=== PATIENT | female | born 1950 | race Caucasian/White ===

== ENCOUNTER → 2017-02-17 | Outpatient (CLI) | payer MEDICARE, OTHER ==
--- NOTE | 2017-02-17 12:30 | XR ---
EXAMINATION TYPE: XR chest 2V DATE OF EXAM: 02/17/2017 12:27 PM COMPARISON: NONE HISTORY: Cough. TECHNIQUE: Frontal and lateral views of the chest are obtained. FINDINGS: Some eventration of anterior aspect right hemidiaphragm is seen. There is no focal air spac e opacity, pleural effusion, or pneumothorax seen. The cardiac silhouette size is within normal limi ts. The osseous structures are intact. IMPRESSION: No suspicious acute infiltrate.
--- NOTE | 2017-02-19 10:29 | MM ---
Reason for exam: screening (asymptomatic). Last mammogram was performed 1 year and 1 month ago. History: Patient is postmenopausal. Took estrogen for 10 years beginning at age 48. Physical Findings: A clinical breast exam by your physician is recommended on an annual basis and results should be correlated with mammographic findings. MG 3D Screening Mammo W/Cad Bilateral CC and MLO view(s) were taken. Prior study comparison: January 08, 2016, bilateral MG screening mammo w CAD. April 28, 2014, bilateral MG screening mammo w CAD. August 06, 2012, bilateral digital screening mammo w/CAD. There is chronic nodularity in the left breast. Chronic densities retained in the left breast relating to prior electronic device/implant. No significant changes when compared with prior studies. ASSESSMENT: Negative, BI-RAD 1 RECOMMENDATION: Routine screening mammogram of both breasts in 1 year.
== END | disposition home or self-care (01) ==
LOC: RADMAMWWP 12:13
PROVIDERS: ATTEND Family Medicine
DX: Z12.31 Encounter for screening mammogram for malignant neoplasm of breast (principal); J44.9 Chronic obstructive pulmonary disease, unspecified
CPT/HCPCS: 71020; 77063; G0202

== ENCOUNTER → 2018-04-19 | Outpatient (CLI) | payer MEDICARE, OTHER ==
--- NOTE | 2018-04-19 16:34 | BD ---
EXAMINATION TYPE: Axial Bone Density DATE OF EXAM: 04/19/2018 COMPARISON: NONE CLINICAL HISTORY: 67-year-old female asymptomatic postmenopausal screening Height: 5 FT 3IN Weight: 187 FRAX RISK QUESTIONS: History of Fracture in Adulthood: YES Secondary Osteoporosis: RISK FACTORS HISTORY OF: Active: YES Postmenopausal woman: TOTAL HYST AGE 46 Take estrogen and/or progesterone medications: TOOK DFOR 10 YEARS NO LONGER TAKES Lost more than 2 inches in height since high school: YES MEDICATIONS: Thyroid Medications:YES Which medication: SYNTHROID How Lon YEARS Additional Medications: SYNTHROID,ANTIVERT, Additional History: EXAM MEASUREMENTS: Bone mineral densitometry was performed using the [employer] System. Bone mineral density as measured about the Lumbar spine is: ----- L1-L4(G/cm2): 0.987 T Score Values are as follows: ----- L2: -2.1 ----- L3: -0.2 ----- L4: -1.1 ----- L1-L4: -1.6 Bone mineral density has: INCREASED 1.2 % since study of: 2015 Bone mineral density about the R hip (g/cm2): 0.758 Bone mineral density about the L hip (g/cm2): 0.709 T Score values are as follows: -----R Neck: -2.0 -----L Neck: -2.4 -----R Total: -2.5 -----L Total: -3.0 Bone mineral density has: DECREASED -5.2 % since study of: 2016 IMPRESSION: Osteoporosis (T Score less than -2.5). There is increased fracture risk and therapy is usually indicated based on age. Re-Screen 1-2 years. NOTE: T-SCORE=SD OF THE YOUNG ADULT MEAN.
--- NOTE | 2018-04-20 09:53 | MM ---
Reason for exam: screening (asymptomatic). Last mammogram was performed 1 year and 2 months ago. History: Patient is postmenopausal. Took estrogen for 10 years beginning at age 48. Physical Findings: A clinical breast exam by your physician is recommended on an annual basis and results should be correlated with mammographic findings. MG 3D Screening Mammo W/Cad Bilateral CC and MLO view(s) were taken. Prior study comparison: February 17, 2017, bilateral MG 3d screening mammo w/cad. January 08, 2016, bilateral MG screening mammo w CAD. The breast tissue is heterogeneously dense. This may lower the sensitivity of mammography. Benign calcifications. There is chronic nodularity in the left breast. No significant changes when compared with prior studies. ASSESSMENT: Benign, BI-RAD 2 RECOMMENDATION: Routine screening mammogram of both breasts in 1 year.
== END | disposition home or self-care (01) ==
LOC: RADMAMWWP 10:24
PROVIDERS: ATTEND Family Medicine
DX: Z12.31 Encounter for screening mammogram for malignant neoplasm of breast (principal); M81.0 Age-related osteoporosis without current pathological fracture; Z78.0 Asymptomatic menopausal state
CPT/HCPCS: 77063; 77067; 77080

== ENCOUNTER → 2018-06-01 | Outpatient (CLI) | payer MEDICARE, OTHER ==
[~2018-06-01] MED LIST: DENOSUMAB 60 MG/ML 1 ML SYRINGE SQ NR
[2018-06-01 14:41] VITALS: BP 127/79; PULSE 71; RESP 16; TEMP 98.2
== END | disposition home or self-care (01) ==
LOC: PROCWHC3 14:15
PROVIDERS: ATTEND Family Medicine
DX: M81.0 Age-related osteoporosis without current pathological fracture (principal)
CPT/HCPCS: 96372; J0897

== ENCOUNTER → 2019-06-28 | Outpatient (CLI) | payer MEDICARE ==
[2019-06-28 18:21] LABS: African American GFR (CKD) 75.1 (60.0-200.0)
== END | disposition home or self-care (01) ==
LOC: LABWHC1 12:20
PROVIDERS: ATTEND Midwife
DX: R55 Syncope and collapse (principal)
CPT/HCPCS: 36415; 82565; 84520

== ENCOUNTER → 2019-06-29 | Outpatient (CLI) | payer MEDICARE ==
--- NOTE | 2019-06-29 13:06 | MR ---
EXAMINATION TYPE: MR brain wo/w con DATE OF EXAM: 06/29/2019 COMPARISON: NONE HISTORY: syncope TECHNIQUE: Multiplanar, multisequence images of the brain and brainstem is performed without and with IV contras t, utilizing 10 mL intravenous Gadavist . FINDINGS: Diffusion weighted images demonstrate no evidence of a recent infarct or other diffusion ab normality. There is a left middle cranial fossa T2 hyperintense/FLAIR hypointense 3.6 cm lesion that follows CSF compatible with a benign arachnoid cyst. Slight mass effect on the temporal lobe. This is a benign finding. There is no extra-axial fluid collection. Mild burden nonspecific white matter armand nges seen as scattered foci of T2/FLAIR hyperintensity within the periventricular and subcortical whi te matter. The ventricular system and cisternal spaces are symmetrically prominent compatible with ag e-related volume loss. Midline structures demonstrate normal morphology. The craniocervical junction appears within normal limits. Post contrast images demonstrate no abnormal enhancement. Basilar artery appears diminutive in caliber but patent. Posterior cerebral arteries are patent. The dural venous sinuses appear patent . Scant mucosal thickening is seen within the ethmoid sinuses. The remaining visualized sinuses are c lear and the globes are intact. Left lens appears surgically absent. Mastoid air cells are well aerat ed. IMPRESSION: 1. No acute infarct, midline shift or mass effect. 2. No abnormal intracranial hemorrhage. 3. Mild burden nonspecific white matter change, likely on the basis of chronic microangiopathy. 4. Benign left middle cranial fossa arachnoid cyst. 5. Diminutive caliber of the basilar artery is incidentally noted however the posterior circulation a ppears patent.
== END | disposition home or self-care (01) ==
LOC: RADMRIMAIN 11:41
PROVIDERS: ATTEND Family Medicine
DX: G93.0 Cerebral cysts (principal); R90.82 White matter disease, unspecified
CPT/HCPCS: 70553; A9585

== ENCOUNTER → 2019-06-29 | Outpatient (CLI) | payer MEDICARE, OTHER ==
--- NOTE | 2019-06-29 15:27 | US ---
EXAMINATION TYPE: US carotid duplex BILAT DATE OF EXAM: 06/29/2019 COMPARISON: NONE CLINICAL HISTORY: ,R55 syncope,R56.9 convulsions. vertigo EXAM MEASUREMENTS: RIGHT: Peak Systolic Velocity (PSV) cm/sec ----- Right CCA: 91.0 ----- Right ICA: 99.8 ----- Right ECA: 121.9 ICA/CCA ratio: 1.1 RIGHT: End Diastole cm/sec ----- Right CCA: 23.8 ----- Right ICA: 18.3 ----- Right ECA: 19.4 LEFT: Peak Systolic Velocity (PSV) cm/sec ----- Left CCA: 86.2 ----- Left ICA: 115.7 ----- Left ECA: 69.2 ICA/CCA ratio: 1.3 LEFT: End Diastole cm/sec ----- Left CCA: 24.6 ----- Left ICA: 38.0 ----- Left ECA: 8.1 VERTEBRALS (direction of flow): Right Vertebral: Antegrade Left Vertebral: Antegrade Rhythm: Normal Mild homogeneous plaque seen with no significant stenosis IMPRESSION: Mild degree of grayscale atheromatous plaquing with no sonographically evident hemodynam ically significant stenosis within either visualized carotid arterial system. Criteria for Assigning % of Stenosis / Diameter reduction (Estimation based on the indirect measurements of the internal carotid artery velocities (ICA PSV). 1. Normal (no stenosis)=ICA PSV < 125 cm/s: ratio < 2.0: ICA EDV<40 cm/s. 2. Less than 50% stenosis=ICA PSV < 125 cm/s: ratio < 2.0: ICA EDV<40 cm/s. 3. 50 to 69% stenosis=ICA PSV of 125 to 230 cm/s: ration 2.0 ? 4.0: ICA EDV 40-100 cm/s. 4. Greater than 70% stenosis to near occlusion= ICA PSV > 230 cm/s: ratio > 4.0: ICA EDV > 100 cm/s. 5. Near occlusion= ICA PSV velocities may be low or undetectable: variable ratio and ICA EDV. 6. Total occlusion=unable to detect flow.
--- NOTE | 2019-06-29 15:28 | US ---
EXAMINATION TYPE: US venous doppler duplex LE DATE OF EXAM: 06/29/2019 2:59 PM COMPARISON: NONE CLINICAL HISTORY: R60.0 Edema,. left leg edema, no h/o dvt SIDE PERFORMED: Bilateral TECHNIQUE: The lower extremity deep venous system is examined utilizing real time linear array sonog nena with graded compression, doppler sonography and color-flow sonography. VESSELS IMAGED: External Iliac Vein (EIV) Common Femoral Vein Deep Femoral Vein Greater Saphenous Vein * Femoral Vein Popliteal Vein Small Saphenous Vein * Proximal Calf Veins (* superficial vessels) Grayscale, color doppler, spectral doppler imaging performed of the deep veins of the lower extremiti es. There is normal flow, compressibility, vascular waveforms. Right Leg: Appears negative for DVT Left Leg: Appears negative for DVT IMPRESSION: No sonographic evidence of deep venous thrombosis within either of the bilateral lower e xtremities.
== END | disposition home or self-care (01) ==
LOC: RADUSWWP 14:12
PROVIDERS: ATTEND Family Medicine
DX: I67.2 Cerebral atherosclerosis (principal); R55 Syncope and collapse
CPT/HCPCS: 93306; 93880; 93970

== ENCOUNTER → 2019-07-15 | Outpatient (CLI) | payer MEDICARE, OTHER ==
--- NOTE | 2019-07-18 13:57 | MM ---
Reason for exam: screening (asymptomatic). Last mammogram was performed 1 year and 3 months ago. History: Patient is postmenopausal. Took estrogen for 10 years beginning at age 48. Physical Findings: A clinical breast exam by your physician is recommended on an annual basis and results should be correlated with mammographic findings. MG 3D Screening Mammo W/Cad Bilateral CC and MLO view(s) were taken. Prior study comparison: April 19, 2018, bilateral MG 3d screening mammo w/cad. February 17, 2017, bilateral MG 3d screening mammo w/cad. The breast tissue is heterogeneously dense. This may lower the sensitivity of mammography. Benign appearing bilateral calcifications. No suspicious abnormality. No significant changes when compared with prior studies. ASSESSMENT: Benign, BI-RAD 2 RECOMMENDATION: Routine screening mammogram of both breasts in 1 year.
== END | disposition home or self-care (01) ==
LOC: RADMAMWWP 13:09
PROVIDERS: ATTEND Family Medicine
DX: Z12.31 Encounter for screening mammogram for malignant neoplasm of breast (principal)
CPT/HCPCS: 77063; 77067

== ENCOUNTER 2019-09-22 07:31 | Day surgery (SDC) | payer MEDICARE ==
[2019-09-19 15:48] VITALS: BMI 33.5
[~2019-09-22 07:31] MED LIST changes: -DENOSUMAB 60 MG/ML 1 ML SYRINGE SQ NR; +SODIUM CHLORIDE 0.9% 1,000 ML IV SCH
[2019-09-22 07:47] VITALS: RESP 16; TEMP 98.1
[2019-09-22 09:45] VITALS: BP 142/72; PULSE 76
--- NOTE | 2019-09-22 11:25 | P.PCN ---
Preoperative Diagnosis: Diagnosis: Recurrent dizzy spells and presyncope Twelve-lead EKG reveals sinus mechanism, normal RI, narrow QRS, normal QT interval, no delta or epsilon waves Baseline heart rate was 61 bpm, baseline blood pressure 147/77 mmHg Patient was tilted upright a 70 angle per protocol, heart rate remained stable, and blood pressure remained elevated but stable throughout the study, no significant changes in heart rate or blood pressure. Patient remained asymptomatic throughout the procedure, at the end of the procedure the patient was slight supine Impression Normal 12-lead EKG Hypertension No evidence for neurocardiogenic syncope or dysautonomia
== END 2019-09-22 09:26 | disposition home or self-care (01) ==
LOC: CATHEP 07:31
PROVIDERS: ATTEND Internal Medicine Clinical Cardiac Electrophysiology
DX: R55 Syncope and collapse (principal); I10 Essential (primary) hypertension
CPT/HCPCS: 93660

== ENCOUNTER → 2020-07-20 | Outpatient (CLI) | payer MEDICARE ==
--- NOTE | 2020-07-20 09:31 | US ---
EXAMINATION TYPE: US duplex aorta DATE OF EXAM: 07/20/2020 COMPARISON: NONE CLINICAL HISTORY: Z13.6 screening for cardiovascular disorders. EXAM MEASUREMENTS: Abdominal Aorta: Proximal: 2.3cm Mid: 1.9cm Distal: 1.6cm Bifurcation: Right: 0.8cm, Left: obscured by bowel gas No evidence of AAA. IMPRESSION: No evidence for abdominal aortic aneurysm.
== END | disposition home or self-care (01) ==
LOC: RADUSWWP 09:00
PROVIDERS: ATTEND Family Medicine
DX: Z13.6 Encounter for screening for cardiovascular disorders (principal)
CPT/HCPCS: 93979

== ENCOUNTER → 2020-07-27 | Outpatient (CLI) | payer MEDICARE ==
--- NOTE | 2020-07-31 13:22 | MM ---
Reason for exam: screening (asymptomatic). Last mammogram was performed 1 year ago. History: Patient is postmenopausal. Took estrogen for 10 years beginning at age 48. Physical Findings: A clinical breast exam by your physician is recommended on an annual basis and results should be correlated with mammographic findings. MG 3D Screening Mammo W/Cad Bilateral CC and MLO view(s) were taken. Prior study comparison: July 15, 2019, bilateral MG 3d screening mammo w/cad. April 19, 2018, bilateral MG 3d screening mammo w/cad. There are scattered fibroglandular densities. Stable fat necrosis calcifications medial left breast. No significant changes when compared with prior studies. ASSESSMENT: Benign, BI-RAD 2 RECOMMENDATION: Routine screening mammogram of both breasts in 1 year.
== END | disposition home or self-care (01) ==
LOC: RADMAMWWP 16:24
PROVIDERS: ATTEND Family Medicine
DX: Z12.31 Encounter for screening mammogram for malignant neoplasm of breast (principal)
CPT/HCPCS: 77063; 77067

== ENCOUNTER → 2020-08-13 | Outpatient (CLI) | payer MEDICARE ==
--- NOTE | 2020-08-13 18:39 | BD ---
EXAMINATION TYPE: Axial Bone Density DATE OF EXAM: 08/13/2020 COMPARISON: NONE CLINICAL HISTORY: Postmenopausal screening Height: 5 FT 3 1/2 IN Weight: 185 FRAX RISK QUESTIONS: Alcohol (3 or more units per day): NO Family History (Parent hip fracture): NO Glucocorticoids (More than 3mos): NO (Ex: prednisone, prednisolone, methylprednisolone, dexamethasone, and hydrocortisone). History of Fracture in Adulthood: YES Secondary Osteoporosis: 1. Type 1 Diabetes: NO 2. Hyperthyroidism: NO 3. Menopause before 45: NO 4. Malnutrition: NO 5. Chronic liver disease: NO Rheumatoid Arthritis: NO Current Tobacco Use: NO RISK FACTORS HISTORY OF: Surgery to Spine/Hip(right/left)/Wrist (right/left): LUMBAR SURG When: 1989 Family History of Osteoporosis: NO Active: YES Diet low in dairy products/other sources of calcium: NO Postmenopausal woman: TOTAL HYST AGE 46 Take estrogen and/or progesterone medications: TOOK HRT FRO AO YEARS NO LONGER TAKES Lost more than 2 inches in height since high school: NO Poor Health: NO MEDICATIONS: Thyroid Medications: YES Which medication: SYNTHROID How Long: OVER 30 YEARS Additional Medications: SYNTHROID Additional History: EXAM MEASUREMENTS: Bone mineral density about the R hip (g/cm2): 0.719 Bone mineral density about the L hip (g/cm2): 0.788 T Score values are as follows: -----R Neck: -1.8 -----L Neck: -2.3 -----R Total: -2.4 -----L Total: -2.9 Bone mineral density has: INCREASED 2.7 % since study of: 2018 Bone mineral density about the L Wrist (g/cm2): 0.460 T Score values are as follows: -----Dist. R+U: -3.5 -----Prox. R+U: -3.2 -----Radius total: -3.5 BASELINE IMPRESSION: Osteoporosis (T Score less than -2.5). There is increased fracture risk and therapy is usually indicated based on age. Re-Screen 1-2 years. NOTE: T-SCORE=SD OF THE YOUNG ADULT MEAN.
== END | disposition home or self-care (01) ==
LOC: RADBDWWP 09:53
PROVIDERS: ATTEND Family Medicine
DX: M81.0 Age-related osteoporosis without current pathological fracture (principal)
CPT/HCPCS: 77080

== ENCOUNTER 2021-04-10 08:47 | Day surgery (SDC) | payer MEDICARE ==
[2021-04-05 11:46] VITALS: BMI 32.8
--- NOTE | 2021-04-10 06:48 | P.GSHP ---
History of Present Illness H&P Date: 04/10/21 CHIEF COMPLAINT: Colon screen HISTORY OF PRESENT ILLNESS: The patient is a 70-year-old female who presents for colon screen. Lower endoscopy was offered for further evaluation and management. PAST MEDICAL HISTORY: Please see list. PAST SURGICAL HISTORY: Please see list. MEDICATIONS: Please see list. ALLERGIES: Please see list. SOCIAL HISTORY: No illicit drug use FAMILY HISTORY: No reports of Crohn disease or ulcerative colitis. REVIEW OF ORGAN SYSTEMS: CONSTITUTIONAL: No reports of fevers or chills. PHYSICAL EXAM: VITAL SIGNS: Stable GENERAL: Well-developed pleasant in no acute distress. HEENT: No scleral icterus. Extraocular movements grossly intact. Moist buccal mucosa. NECK: Supple without lymphadenopathy. CHEST: Unlabored respirations. Equal bilateral excursions. CARDIOVASCULAR: Regular rate and rhythm. Distal 2+ pulses. ABDOMEN: Soft, nontender, nondistended. MUSCULOSKELETAL: No clubbing, cyanosis, or edema. ASSESSMENT: 1. Colon screen. PLAN: 1. Recommend proceeding with a lower endoscopy Past Medical History Past Medical History: Hyperlipidemia, Osteoarthritis (OA), Thyroid Disorder Additional Past Medical History / Comment(s): Vertigo, fainted April 21. History of Any Multi-Drug Resistant Organisms: None Reported Past Surgical History: Back Surgery, Heart Catheterization, Hysterectomy, Joint Replacement Additional Past Surgical History / Comment(s): Left knee replacement, Loop recorder placed /later removed, right knee arthroscopy. Past Anesthesia/Blood Transfusion Reactions: Motion Sickness Smoking Status: Former smoker - Past Family History Father Family Medical History: Deep Vein Thrombosis (DVT) Additional Family Medical History / Comment(s): Heart problems. Mother Family Medical History: Deep Vein Thrombosis (DVT) Additional Family Medical History / Comment(s): Emphysema. Medications and Allergies Home Medications Medication Instructions Recorded Confirmed Type Levothyroxine Sodium [Synthroid] 112 mcg PO QAM 04/13/18 04/05/21 History Atorvastatin [Lipitor] 40 mg PO HS 04/05/21 04/05/21 History Wolf/D3/Mag11/Zinc/Genomics Scientist/José/Bor 1 each PO DAILY 04/05/21 04/05/21 History [Caltrate 600+D Plus Tablet] Cholecalciferol [Vitamin D3 (25 50 mcg PO DAILY 04/05/21 04/05/21 History Mcg = 1000 Iu)] Multivit/Folic Acid/Vit K1 1 each PO DAILY 04/05/21 04/05/21 History [One-A-Day Women's 50 Plus Tab] Allergies Allergy/AdvReac Type Severity Reaction Status Date / Time meperidine HCl [From Demerol] Allergy Rash/Hives Verified 04/05/21 11:40 codeine AdvReac Nausea & Verified 04/05/21 11:40 Vomiting
[~2021-04-10 08:47] MED LIST changes: +LACTATED RINGERS 1,000 ML IV SCH; +LIDOCAINE 1% (10MG/ML) FOR IV START INTRADERMA PRN; -SODIUM CHLORIDE 0.9% 1,000 ML IV SCH
[2021-04-10 09:29] VITALS: RESP 16; TEMP 97.6
[2021-04-10] MEDS ORDERED: PROPOFOL 10 MG/ML 20 ML VIAL IV ONE (09:41)
--- NOTE | 2021-04-10 10:11 | P.PCN ---
Date of Procedure: 04/10/21 Description of Procedure: PREOPERATIVE DIAGNOSIS: Personal history colon polyps Colonoscopy screening. POSTOPERATIVE DIAGNOSIS: Severe sigmoid diverticulosis with stricture OPERATION: Colonoscopy to the mid transverse colon SURGEON: Tiffany Travis MD. ANESTHESIA: MAC. INDICATIONS: The patient is a 70-year-old female who presents for colonoscopy screening. Last colonoscopy 5 years ago. Benefits and risks were described and informed consent was obtained. DESCRIPTION OF PROCEDURE: The patient had undergone MiraLAX Gatorade prep. The patient had been brought into the operating room and laid in the left lateral decubitus position. After adequate intravenous sedation, the rectum was examined with 2% lidocaine jelly. No external hemorrhoids were encountered. The rectal tone was within normal limits. No lesions were palpated in the rectal vault. The sigmoid colon was narrow, tortuous and redundant. An Olympus colonoscope was advanced until transverse colon and prohibitive from advancing further due to stricture. The prep was excellent. Severe sigmoid diverticulosis was encountered. No colonic polyps were found of the sigmoid and descending colon. No evidence of focal colitis was found. Retroflexion of the scope demonstrated grade 1 internal hemorrhoids without active bleeding or inflammation. The colon was desufflated. The patient had tolerated the procedure well. Withdrawal time was over 6 minutes. FINDINGS: Aronchick preparation quality scale 1 (1-5) Internal hemorrhoids, grade 1 No external prolapsed hemorrhoids. No arteriovenous malformations. Sigmoid colon narrow, tortuous, redundant with focal stricture preventing advancing the scope beyond transverse colon No focal colitis. RECOMMENDATIONS: 1. Recommend colon resection due to stricture and severe diverticulosis Plan - Discharge Summary Discharge Rx Participant: No New Discharge Prescriptions: Continue Levothyroxine Sodium [Synthroid] 112 mcg PO QAM Atorvastatin [Lipitor] 40 mg PO HS Cholecalciferol [Vitamin D3 (25 Mcg = 1000 Iu)] 50 mcg PO DAILY Multivit/Folic Acid/Vit K1 [One-A-Day Women's 50 Plus Tab] 1 each PO DAILY Wolf/D3/Mag11/Zinc/Firebrick And Refractory Tile Repairer/José/Bor [Caltrate 600+D Plus Tablet] 1 each PO DAILY Discharge Medication List Levothyroxine Sodium [Synthroid] 112 mcg PO QAM 04/13/18 [History] Atorvastatin [Lipitor] 40 mg PO HS 04/05/21 [History] Wolf/D3/Mag11/Zinc/Firebrick And Refractory Tile Repairer/José/Bor [Caltrate 600+D Plus Tablet] 1 each PO DAILY 04/05/21 [History] Cholecalciferol [Vitamin D3 (25 Mcg = 1000 Iu)] 50 mcg PO DAILY 04/05/21 [History] Multivit/Folic Acid/Vit K1 [One-A-Day Women's 50 Plus Tab] 1 each PO DAILY 04/05/21 [History] Follow up Appointment(s)/Referral(s): Tiffany Travis MD [STAFF PHYSICIAN] - 04/16/21 Patient Instructions/Handouts: Diverticulosis Diet (GEN), Diverticulosis (DC) Activity/Diet/Wound Care/Special Instructions: Repeat colonoscopy in 2 years, 2022 Discharge Disposition: HOME SELF-CARE
[2021-04-10 10:31] VITALS: BP 135/73; PULSE 63
== END 2021-04-10 11:29 | disposition home or self-care (01) ==
LOC: ORWHC2ENDO 08:47
PROVIDERS: ATTEND Surgery Plastic and Reconstructive Surgery
DX: Z12.11 Encounter for screening for malignant neoplasm of colon (principal); K57.90 Diverticulosis of intestine, part unspecified, without perforation or abscess without bleeding; K64.8 Other hemorrhoids; Z86.010 Personal history of colon polyps; E78.5 Hyperlipidemia, unspecified; E07.9 Disorder of thyroid, unspecified; M19.90 Unspecified osteoarthritis, unspecified site; Z87.891 Personal history of nicotine dependence; Z79.899 Other long term (current) drug therapy; Z88.5 Allergy status to narcotic agent; Z88.8 Allergy status to other drugs, medicaments and biological substances; R42 Dizziness and giddiness
CPT/HCPCS: J2704; G0105; 45378

== ENCOUNTER → 2021-05-07 | Outpatient (CLI) | payer MEDICARE ==
--- NOTE | 2021-05-08 06:44 | CT ---
EXAMINATION TYPE: CT abdomen pelvis w con DATE OF EXAM: 05/07/2021 COMPARISON: None HISTORY: Abnormal colonoscopy. Patient having no complaints at time of scan. CT DLP: 1160.8 mGycm CONTRAST: CT scan of the abdomen and pelvis is performed with Oral Contrast and with IV Contrast, patient injec beatrice with 100ml mL of Isovue 300. FINDINGS: LUNG BASES-: No visible nodule. No infiltrate. LIVER/GB: Small gallstones are identified. No space occupying hepatic lesion. Biliary tree is of n ormal caliber. PANCREAS: No inflammation. No distinct mass. SPLEEN: No splenic enlargement. No lesion seen. ADRENALS: No nodule. No thickening. KIDNEYS/BLADDER: No hydronephrosis. No nephrolithiasis. No distinct renal mass. Urinary bladder g rossly unremarkable. BOWEL: Normal appendix. Normal bowel caliber. No inflammation. There is evidence of sigmoid diverti cular disease. No diverticulitis. No obvious mass identified at this time. Correlate with colonoscopy results. GENITAL ORGANS: No gross abnormality. LYMPH NODES: No greater than 1cm abdominal or pelvic lymph nodes are appreciated. AORTA: No significant abnormality. OSSEOUS STRUCTURES: Severe degenerative change lumbar spine. OTHER: No significant additional abnormality is seen. IMPRESSION: 1. There is evidence of sigmoid diverticular disease. No diverticulitis. No obvious mass identified a t this time. Correlate with colonoscopy results. 2. The liver is homogeneous. 3. Cholelithiasis.
== END | disposition home or self-care (01) ==
LOC: RADCTMAIN 17:25
PROVIDERS: ATTEND Surgery Plastic and Reconstructive Surgery
DX: K80.20 Calculus of gallbladder without cholecystitis without obstruction (principal); K57.32 Diverticulitis of large intestine without perforation or abscess without bleeding
CPT/HCPCS: 82565; 84520; 74177; 36415; Q9967

== ENCOUNTER → 2021-06-05 | Outpatient (CLI) | payer MEDICARE | END | disposition home or self-care (01) | LOC: LABWHC1 15:03 | PROVIDERS: ATTEND Surgery Plastic and Reconstructive Surgery | DX: I10 Essential (primary) hypertension (principal) | CPT/HCPCS: 36415; 93005 ==

== ENCOUNTER → 2021-08-20 | Outpatient (CLI) | payer MEDICARE ==
--- NOTE | 2021-08-22 14:37 | MM ---
Reason for exam: screening (asymptomatic). Last mammogram was performed 1 year and 1 month ago. History: Patient is postmenopausal. Took estrogen for 10 years beginning at age 48. Physical Findings: A clinical breast exam by your physician is recommended on an annual basis and results should be correlated with mammographic findings. MG 3D Screening Mammo W/Cad Bilateral CC and MLO view(s) were taken. Prior study comparison: July 27, 2020, bilateral MG 3d screening mammo w/cad. July 15, 2019, bilateral MG 3d screening mammo w/cad. April 19, 2018, bilateral MG 3d screening mammo w/cad. February 17, 2017, bilateral MG 3d screening mammo w/cad. January 08, 2016, bilateral MG screening mammo w CAD. The breast tissue is heterogeneously dense. This may lower the sensitivity of mammography. There is chronic nodularity bilaterally, right subareolar and left central MLO. Medial fat necrosis calcifications on the left. Stable right CC medial asymmetric density. No significant changes when compared with prior studies. ASSESSMENT: Benign, BI-RAD 2 RECOMMENDATION: Routine screening mammogram of both breasts in 1 year. Patient should continue monthly self breast exams. A negative report should not preclude additional follow up of suspicious palpable abnormalities.
== END | disposition home or self-care (01) ==
LOC: RADMAMWWP 14:28
PROVIDERS: ATTEND Family Medicine
DX: Z12.31 Encounter for screening mammogram for malignant neoplasm of breast (principal)
CPT/HCPCS: 77063; 77067

== ENCOUNTER 2021-09-27 08:54 | Day surgery (SDC) | payer MEDICARE ==
[2021-09-25 13:09] VITALS: BMI 34.1
--- NOTE | 2021-09-27 07:12 | P.GSHP ---
History of Present Illness H&P Date: 09/27/21 CHIEF COMPLAINT: Cholecystitis HISTORY OF PRESENT ILLNESS: The patient is a 71-year-old female who presents with history of epigastric including right upper quadrant abdominal pain. She underwent diagnostic studies for her gallbladder. Separately her clinical picture was consistent with cholecystitis. Now she presents for surgical intervention. PAST MEDICAL HISTORY: Please see list PAST SURGICAL HISTORY: Please see list MEDICATIONS: Please see list ALLERGIES: Please see list SOCIAL HISTORY: Please see list FAMILY HISTORY: Please see list REVIEW OF ORGAN SYSTEMS: CONSTITUTIONAL: No reports of fevers or chills. HEENT: Denies any troubles with the vision or hearing. PHYSICAL EXAM: VITAL SIGNS: Afebrile vital signs stable GENERAL: Well-developed pleasant in no acute distress. HEENT: No scleral icterus. Extraocular movements grossly intact. Moist buccal mucosa. NECK: Supple without lymphadenopathy. CHEST: Unlabored respirations. Equal bilateral excursions. CARDIOVASCULAR: Regular rate regular rhythm rhythm. Distal 2+ pulses. ABDOMEN: Soft, nondistended. Tender along the epigastrium and right upper quadrant. MUSCULOSKELETAL: No clubbing, cyanosis, or edema. NEURO: Cranial nerves II to XII within normal limits. No focal or lateralizing signs. PSYCH: Alert and oriented to person, place and time. SKIN: Well-perfused good skin turgor. ASSESSMENT: 1. Epigastric and right upper quadrant abdominal pain 2. Chronic cholecystitis 3. Symptomatic gallstones. PLAN: 1. Will need a robotic cholecystectomy possible open. Benefits and risks were described. 2. Heparin for DVT prophylaxis 5000 units. 3. Antibiotic prophylaxis. 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 Past Anesthesia/Blood Transfusion Reactions: Motion Sickness Smoking Status: Former smoker - Past Family History Father Family Medical History: Deep Vein Thrombosis (DVT) Additional Family Medical History / Comment(s): Heart problems. Mother Family Medical History: Deep Vein Thrombosis (DVT) Additional Family Medical History / Comment(s): Emphysema. Medications and Allergies Home Medications Medication Instructions Recorded Confirmed Type Levothyroxine Sodium [Synthroid] 112 mcg PO QAM 04/13/18 09/25/21 History Atorvastatin [Lipitor] 40 mg PO DAILY 04/05/21 09/25/21 History Multivit/Folic Acid/Vit K1 1 each PO DAILY 04/05/21 09/25/21 History [One-A-Day Women's 50 Plus Tab] Allergies Allergy/AdvReac Type Severity Reaction Status Date / Time meperidine HCl [From Demerol] Allergy Rash/Hives Verified 09/25/21 12:48 codeine AdvReac Nausea & Verified 09/25/21 12:48 Vomiting
[~2021-09-27 08:54] MED LIST changes: +.fentaNYL (PF) 50 MCG/ML 2 ML AMP IV PRN; +ACETAMINOPHEN TAB 500 MG TAB PO STA; +DEXAMETHASONE SOD PHOSPHATE 4 MG/ML 1 ML VIAL IV ONE; +GABAPENTIN 300 MG CAP PO STA; +HEPARIN SODIUM,PORCINE/PF 5,000 UNIT/0.5 ML SYRINGE SQ PRN; +INDOCYANINE GREEN 25 MG VIAL IV STA; -LIDOCAINE 1% (10MG/ML) FOR IV START INTRADERMA PRN; +MELOXICAM 7.5 MG TAB PO STA; +MIDAZOLAM 2 MG/2 ML VIAL IV PRN; +ONDANSETRON 4 MG/2 ML VIAL IVP ONE; +SCOPOLAMINE 1.5MG/72HR PATCH TRANSDERM SCH
[2021-09-27 09:41] LABS: Basophils % (A) 1 %; Eosinophils # (A) 0.2 k/uL (0-0.7); Eosinophils % (A) 2 %; HCT 44.9 % (34.0-46.0); HGB 15.1 gm/dL (11.4-16.0); Lymphocytes # (A) 1.6 k/uL (1.0-4.8); Lymphocytes % (A) 23 %; MCH 31.5 pg (25.0-35.0); MCHC 33.6 g/dL (31.0-37.0); MCV 93.6 fL (80.0-100.0); Mean Platelet Volume 6.6; Monocytes # (A) 0.4 k/uL (0-1.0); Monocytes % (A) 5 %; Neutrophils # (A) 4.6 k/uL (1.3-7.7); Neutrophils % (A) 68 %; Platelet Count 323 k/uL (150-450); RDW 13.5 % (11.5-15.5); WBC 6.8 k/uL (3.8-10.6)
[2021-09-27] MEDS ORDERED: MIDAZOLAM 2 MG/2 ML VIAL ONE (11:10)
[2021-09-27] MEDS ORDERED: PROPOFOL 10 MG/ML 20 ML VIAL IV ONE (11:10)
[2021-09-27] MEDS ORDERED: HYDROmorphone (PF) 1 MG/ML ONE (11:10)
[2021-09-27] MEDS ORDERED: ROCURONIUM 10 MG/ML (5 ML VIAL) IV ONE (11:10)
[2021-09-27] MEDS ORDERED: NEOSTIGMINE 1 MG/ML 10 ML VIAL ONE (11:10)
[2021-09-27] MEDS ORDERED: GLYCOPYRROLATE 0.2 MG/ML 2 ML VIAL ONE (11:10)
[2021-09-27] MEDS ORDERED: SUCCINYLCHOLINE CHLORIDE 100 MG/5 ML SYR IV ONE (11:10)
[2021-09-27] MEDS ORDERED: .fentaNYL (PF) 50 MCG/ML 2 ML AMP ONE (11:10)
[2021-09-27] MEDS ORDERED: LIDOCAINE 1% INJ 10MG/ML (20 ML MDV) ONE (11:10)
[2021-09-27] MEDS ORDERED: BUPIVACAIN-EPI 0.25%-1:200,000 30 ML VIAL SQ ONE ×2 (11:36)
[2021-09-27 12:29] VITALS: TEMP 98
--- NOTE | 2021-09-27 12:42 | P.OP ---
Date of Procedure: 09/27/21 Description of Procedure: SURGEON: TIFFANY TRAVIS MD PREOPERATIVE DIAGNOSES: 1. Chronic cholecystitis 2. Right upper quadrant abdominal pain 3. Hypothyroidism 4. Motion sickness 5. Obesity due to excess calories, BMI 35.9 6. Hyperlipidemia POSTOPERATIVE DIAGNOSES: 1. Chronic cholecystitis 2. Right upper quadrant abdominal pain 3. Hypothyroidism 4. Motion sickness 5. Obesity due to excess calories, BMI 35.9 6. Hyperlipidemia 7. Peritoneal adhesions OPERATION: 1. Robotic-assisted da Mita Xi laparoscopic cholecystectomy, multiport with FIREFLY ESTIMATED BLOOD LOSS: 5 mL. SPECIMENS REMOVED: Gallbladder. COMPLICATIONS: None. OPERATIVE FINDINGS: 1. Moderate scarring midline with peritoneal adhesions 2. Hydrops cholecystitis INDICATIONS: The patient is a 71-year-old female who presents with symptomatic gallstones. Robotic assisted laparoscopic approach was described. Benefits and risks of the procedure including but not limited to bleeding, infection, injury to the biliary tree was described. Informed consent was obtained. DESCRIPTION OF PROCEDURE: Patient was brought to the operating room, placed in supine position. After general induction, the abdomen had been prepped and draped in standard sterile fashion. The robotic da Mita XI system was primed. After a timeout protocol was performed, the patient had been prepped and draped in standard sterile fashion. The patient was injected with indocyanine green. A 5 mm 0 degrees laparoscopic trocar entry was performed along the left upper quadrant. The abdomen insufflated to 15 mmHg pressure which was tolerated well. Diagnostic laparoscopy demonstrated no injury to bowel viscera or mesentery. The liver surface was unremarkable. Next, two 8 mm robotic ports were placed along the right upper abdomen. The camera 8-mm port was maintained along the epigastrium. Another 8 mm port was placed along the left upper abdominal wall after exchanging the 5 mm port. Please note that the ports were placed at least 10 to 15 cm away from the target anatomy of the gallbladder. The robot was docked along the left lateral abdomen. The patient was repositioned in reverse Trendelenburg position. Using a grasper for arm 3, a grasper for arm 4, including hook cautery for arm 1, the robotic system was docked and primed as described. Instruments were interchanged by the neurology physician assistant including hook cautery, Bovie cautery and clip appliers. I had sat at the console. Peritoneal adhesions along the midline was identified and undisturbed. Next attention was brought to the infundibulum and cystic structures. The infundibulum and cystic duct were dissected free from surrounding tissues. The cystic duct was isolated. FIREFLY was used to identify the cystic artery and cystic structures. A critical view of safety was obtained. Large PLASTIC clips were used throughout the entire case. Using a clip director perioperative, 2 clips were placed at the junction of the infundibulum and cystic duct. The cystic duct was divided between clips. Next, the cystic artery was similarly clipped and cauterized. Electro-Bovie cautery was used to remove the gallbladder from the hepatic fossa. Hemostasis was checked and found to be adequate. The robot was undocked. I re-scrubbed into the case. Using a 10 mm Endo Catch bag via the left upper quadrant incision, the specimen was removed from the abdominal cavity. All pneumoperitoneum instruments were evacuated from the abdominal cavity. The incisions were reapproximated using 4-0 Monocryl in an interrupted subcuticular fashion. Fascial defects were less than 8 mm in size. Please note along the trocar sites, local anesthetic was placed as a field block prior to insertion of all instruments. Liquid glue was applied to the skin. At the end of the procedure needle, sponge, and instrument count had been verified correct by the auto emissions technician. The patient was transferred to postanesthesia care unit in stable condition. Intraoperative films were shared with the patient's family. Plan - Discharge Summary Discharge Rx Participant: Yes New Discharge Prescriptions: New Simethicone [Gas-X] 125 mg PO AC-TID PRN #20 capsule PRN Reason: Pain Ibuprofen [Motrin] 600 mg PO Q8HR PRN #30 tab PRN Reason: Pain Acetaminophen Tab [Tylenol Tab] 1,000 mg PO Q6HR PRN #30 tablet PRN Reason: Pain Continue Levothyroxine Sodium [Synthroid] 112 mcg PO QAM Atorvastatin [Lipitor] 40 mg PO DAILY Multivit/Folic Acid/Vit K1 [One-A-Day Women's 50 Plus Tab] 1 each PO DAILY Discharge Medication List Levothyroxine Sodium [Synthroid] 112 mcg PO QAM 04/13/18 [History] Atorvastatin [Lipitor] 40 mg PO DAILY 04/05/21 [History] Multivit/Folic Acid/Vit K1 [One-A-Day Women's 50 Plus Tab] 1 each PO DAILY 04/05/21 [History] Acetaminophen Tab [Tylenol Tab] 1,000 mg PO Q6HR PRN #30 tablet 09/27/21 [Rx] Ibuprofen [Motrin] 600 mg PO Q8HR PRN #30 tab 09/27/21 [Rx] Simethicone [Gas-X] 125 mg PO AC-TID PRN #20 capsule 09/27/21 [Rx] Follow up Appointment(s)/Referral(s): Tiffany Travis MD [STAFF PHYSICIAN] - 10/01/21 (Telehealth possible) Patient Instructions/Handouts: *[facility] - Managing Your Pain After Surgery Without Opioids, Low Fat Diet (DC), Laparoscopic Cholecystectomy (DC) Activity/Diet/Wound Care/Special Instructions: Recommend low-fat diet for the next 2 days. No lifting over 10 pounds in 2 weeks until Oct 01. May shower. No bath tub soaks for two weeks until Oct 01 Diet as tolerated. Use Tylenol, simethicone and ibuprofen or Aleve scheduled for the next 24-48 hours for best pain relief. Use ice along incisions for today to prevent swelling. Discharge Disposition: HOME SELF-CARE
[2021-09-27 13:32] VITALS: RESP 18
[2021-09-27 13:56] VITALS: PULSE 51
[2021-09-27 14:20] VITALS: BP 119/70
[2021-09-27] MEDS ORDERED: ONDANSETRON 4 MG/2 ML VIAL ONE (14:57)
[2021-09-27] MEDS ORDERED: ONDANSETRON 4 MG/2 ML VIAL IVP ONE (15:00)
== END 2021-09-27 15:37 | disposition home or self-care (01) ==
LOC: OR 08:54
PROVIDERS: ATTEND Surgery Plastic and Reconstructive Surgery
DX: K80.10 Calculus of gallbladder with chronic cholecystitis without obstruction (principal); K66.0 Peritoneal adhesions (postprocedural) (postinfection); E78.5 Hyperlipidemia, unspecified; M19.90 Unspecified osteoarthritis, unspecified site; E03.9 Hypothyroidism, unspecified; R42 Dizziness and giddiness; Z90.710 Acquired absence of both cervix and uterus; Z96.652 Presence of left artificial knee joint; Z98.890 Other specified postprocedural states; Z87.891 Personal history of nicotine dependence; Z82.49 Family history of ischemic heart disease and other diseases of the circulatory system; Z79.890 Hormone replacement therapy; Z79.899 Other long term (current) drug therapy; Z88.5 Allergy status to narcotic agent; E66.09 Other obesity due to excess calories; Z68.35 Body mass index [BMI] 35.0-35.9, adult
CPT/HCPCS: 88304; 85025; 47563; J2250; J1100; J2710; J0690; J2405; J2001; J3010; J1170; J0330; J2704; J1644

== ENCOUNTER → 2022-10-28 | Outpatient (CLI) | payer MEDICARE ==
--- NOTE | 2022-10-28 16:14 | BD ---
EXAMINATION TYPE: Axial Bone Density DATE OF EXAM: 10/28/2022 COMPARISON: 04/19/2018/ 08/13/2020 CLINICAL HISTORY: 72 years old Female. ICD-10 CODE: Z78.0 asymptomatic menopausal state Height: 62.5 Weight: 212 FRAX RISK QUESTIONS: Family History (Parent hip fracture): NO History of Fracture in Adulthood: NO Secondary Osteoporosis: NO Rheumatoid Arthritis: NO RISK FACTORS HISTORY OF: Surgery to Spine: YES When: 1989 NO HARDWARE Family History of Osteoporosis: NO Active: YES Diet low in dairy products/other sources of calcium: YES Postmenopausal woman: YES Lost more than 2 inches in height since high school: YES Frequent falls: NO Poor Health: NO Hyperparathyroidism: NO Adrenal Insufficiency: NO MEDICATIONS: Thyroid Medications: YES Which medication: Synthroid How Lon+ YEARS Additional Medications: YES CHOLESTEROL MEDS , ONE A DAY VIT EXAM MEASUREMENTS: Bone mineral densitometry was performed using the Friendfer System. Bone mineral density as measured about the Lumbar spine is: ----- L1-L4(G/cm2): 1.041 T Score Values are as follows: ----- L1: -2.5 ----- L2: -1.1 ----- L3: -0.7 ----- L4: -0.32 ----- L1-L4: -1.2 Bone mineral density has: Increased 5.5% since study of: 04/19/2018 Bone mineral density about the R hip (g/cm2): 0.744 Bone mineral density about the L hip (g/cm2): 0.689 T Score values are as follows: -----R Neck: -2.5 -----L Neck: -2.6 -----R Total: -2.1 -----L Total: -2.5 Bone mineral density has: Increased 5.9% since study of: 08/13/2020 FRAX%s: The graph provided illustrates a 15.7% chance for a major osteoporotic fx and a 4.8% chance f or the hips probability for fx in 10 years time. IMPRESSION: Osteoporosis (T Score less than -2.5). There is increased fracture risk and therapy is usually indicated based on age. Re-Screen 1-2 years. NOTE: T-SCORE=SD OF THE YOUNG ADULT MEAN.
--- NOTE | 2022-10-29 08:50 | MM ---
Reason for Exam: Screening (asymptomatic). Last mammogram was performed 1 year(s) and 2 month(s) ago. Patient History: Menarche at age 9. First Full-Term at age 18. Left ovary removed at age 46. Right ovary removed at age 46. Hysterectomy at age 46. Postmenopausal. Patient has history of breast feeding. Estrogen for 10 years from age 48 until age 58. Risk Values: Trinity 5 year model risk: 1.7%. NCI Lifetime model risk: 4.0%. Prior Study Comparison: 07/15/2019 Bilateral Screening Mammogram, [facility]. 07/27/2020 Bilateral Screening Mammogram, [facility]. 08/20/2021 Bilateral Screening Mammogram, [facility]. Tissue Density: There are scattered fibroglandular densities. Findings: Analyzed By CAD. Pattern appears symmetrical and stable. Calcification or foreign bodies within the left breast, stable from comparison. Chronic nodule is within the medial left breast. No suspicious groups of microcalcifications, spiculated or lobular masses, architectural distortion or other secondary signs of malignancy are mammographically apparent. Overall Assessment: Benign, BI-RAD 2 Management: Screening Mammogram of both breasts in 1 year. A negative mammogram report should not preclude additional follow up of suspicious palpable abnormalities. Patient should continue monthly self breast exam. A clinical breast exam by your physician is recommended on an annual basis and results should be correlated with mammographic findings. Electronically signed and approved by: Bertin Mixon D.O. Radiologis
== END | disposition home or self-care (01) ==
LOC: RADMAMWWP 13:54
PROVIDERS: ATTEND Family Medicine
DX: Z12.31 Encounter for screening mammogram for malignant neoplasm of breast (principal); M81.0 Age-related osteoporosis without current pathological fracture; M85.89 Other specified disorders of bone density and structure, multiple sites; Z78.0 Asymptomatic menopausal state
CPT/HCPCS: 77063; 77067; 77080

== ENCOUNTER → 2023-01-07 | Outpatient (CLI) | payer MEDICARE ==
--- NOTE | 2023-01-07 13:23 | MR ---
EXAMINATION TYPE: MR lumbar spine wo con DATE OF EXAM: 01/07/2023 COMPARISON: HISTORY: LOW BACK PAIN INTO RT SIDE TECHNIQUE: Multiplanar, multisequence images of the lumbar spine were acquired without IV contrast. L1-L2: Normal disc appearance without desiccation. No herniation, protrusion or disc bulging. No ca nal stenosis is present. Foramina are patent bilaterally. L2-L3: Moderate decreased signal and loss of height compatible degenerative disc disease. Posterior d isc bulging with effacement of the ventral thecal sac. No evidence for central stenosis or lateral re cess stenosis. Facet joint arthropathy without neural foraminal encroachment. L3-L4: Moderate decreased signal and loss of height compatible degenerative disc disease. Posterior d isc bulging with effacement of the ventral thecal sac. Hypertrophy of the ligamentum flavum and facet joint arthropathy contribute to borderline to mild central stenosis. Foramina are patent. L4-L5: Moderate to severe disc desiccation. Right paracentral disc bulge with right lateral recess st enosis and mild right lateral foraminal encroachment. No evidence for central stenosis at this time. Ventral spondylosis. L5-S1: Severe disc desiccation with posterior disc bulge. Mild effacement ventral thecal sac. Posteri or disc bulge. No evidence for herniation or central stenosis. Mild neural foraminal encroachment. Lumbar segments are intact. No paraspinal masses are identified. Conus medullaris has a normal appe arance. IMPRESSION: 1. Multilevel degenerative disc disease. 2. Borderline to mild central stenosis at L3-4. Brain degrees of neural foraminal encroachment.
== END | disposition home or self-care (01) ==
LOC: RADMRIMAIN 11:30
PROVIDERS: ATTEND Physical Medicine & Rehabilitation
DX: M51.36 Other intervertebral disc degeneration, lumbar region (principal); M48.061 Spinal stenosis, lumbar region without neurogenic claudication; M47.816 Spondylosis without myelopathy or radiculopathy, lumbar region; M48.062 Spinal stenosis, lumbar region with neurogenic claudication; M41.26 Other idiopathic scoliosis, lumbar region
CPT/HCPCS: 72148

== ENCOUNTER → 2023-03-19 | Outpatient (CLI) | payer MEDICARE ==
--- NOTE | 2023-03-19 14:51 | US ---
EXAMINATION TYPE: US venous doppler duplex LE BI DATE OF EXAM: 03/19/2023 2:07 PM COMPARISON: 06/29/2019 CLINICAL INDICATION: Female, 72 years old with history of R60.0 EDEMA; swelling in legs, no h/o dvt SIDE PERFORMED: Bilateral TECHNIQUE: The lower extremity deep venous system is examined utilizing real time linear array sonog nena with graded compression, doppler sonography and color-flow sonography. VESSELS IMAGED: Common Femoral Vein Deep Femoral Vein Greater Saphenous Vein * Femoral Vein Popliteal Vein Small Saphenous Vein * Proximal Calf Veins (* superficial vessels) Right Leg: Negative for DVT Left Leg: Negative for DVT IMPRESSION: Grayscale, color doppler, spectral doppler imaging performed of the deep veins of the lo wer extremities. There is normal flow, compressibility, vascular waveforms.
== END | disposition home or self-care (01) ==
LOC: RADUSWWP 12:59
PROVIDERS: ATTEND Family Medicine
DX: R60.0 Localized edema (principal)
CPT/HCPCS: 93970

== ENCOUNTER → 2023-03-20 | Outpatient (CLI) | payer MEDICARE ==
--- NOTE | 2023-03-24 07:47 | MR ---
EXAMINATION TYPE: MR hip RT wo con DATE OF EXAM: 03/20/2023 COMPARISON: CT abdomen and pelvis May 07, 2021. HISTORY: Right hip pain For 3.5 months. Primary osteoarthritis. Standard multiplanar, multisequence MRI departmental protocol Multiplanar, multisequence images of the pelvis focusing on right hip were acquired without contrast. FINDINGS: There is heterogeneous diminished T1 and increased T2 signal throughout the right femoral h ead and neck with more prominent diminished signal involving the articular surface at the femoral hea d. There are areas of increased T2 signal in the acetabulum. There is moderate to severe axial joint space loss in both hips. There are small hip joint effusions bilaterally. There is beginning loss of normal spherical shape to the right femoral head. No bony fragmentation identified. Increased fluid s ignal at level of right greater trochanter is consistent with an insertional tendinosis. Symmetric sm all bilateral fat-containing inguinal hernias. No groin adenopathy bilaterally. Muscle bulk is symmet julien and maintained. There is edema through the obturator muscles medially on the right. There are diverticula in the sigmoid colon. No free fluid in the pelvis. Uterus is surgically absent. No suspicious bowel dilatation. IMPRESSION: Moderate to advanced degenerative changes in both hips more prominent on the right with a symmetric right-sided osseous and muscular edema. Avascular necrosis is likely present. Further detai ls as discussed above.
== END | disposition home or self-care (01) ==
LOC: RADMRIMAIN 18:30
PROVIDERS: ATTEND Physical Medicine & Rehabilitation
DX: M16.0 Bilateral primary osteoarthritis of hip (principal); M48.062 Spinal stenosis, lumbar region with neurogenic claudication; M51.16 Intervertebral disc disorders with radiculopathy, lumbar region; M51.17 Intervertebral disc disorders with radiculopathy, lumbosacral region; M47.26 Other spondylosis with radiculopathy, lumbar region; M47.27 Other spondylosis with radiculopathy, lumbosacral region

== ENCOUNTER → 2023-06-02 | Outpatient (CLI) | payer MEDICARE ==
[2023-06-02 15:08] LABS: Partial Thromboplastin Time 22.6 sec (22.0-30.0); Prothrombin Time 10.5 sec (9.0-12.0)
[2023-06-02 19:51] LABS: ALT 34 U/L (8-44); AST 33 U/L (13-35); Albumin 4.6 d/dL (3.8-4.9); Albumin/Globulin Ratio 2.19 Ratio (1.60-3.17); Alkaline Phosphatase 131 U/L (41-126); Blood Urea Nitrogen 16.1 mg/dL (9.0-27.0); Calcium 10.2 mg/dL (8.7-10.3); Carbon Dioxide 26.7 mmol/L (21.6-31.8); Chloride 105 mmol/L (96-109); Globulin 2.1 d/dL (1.6-3.3); Glucose 132 mg/dL (70-110); Potassium 4.4 mmol/L (3.5-5.5); Sodium 144 mmol/L (135-145); Total Bilirubin 0.8 mg/dL (0.3-1.2); Total Protein 6.7 d/dL (6.2-8.2)
[2023-06-02 20:13] LABS: Appearance,Urine Cloudy (Clear); Bilirubin,Urine Small (Negative); Blood,Urine Negative (Negative); Color,Urine Dark Yellow (Yellow); Ketones,Urine Trace (Negative); Nitrite,Urine Negative (Negative); Specific Gravity,Urine 1.024 (1.001-1.030)
[2023-06-02 21:29] LABS: HCT 43.7 % (37.2-46.3); HGB 14.5 d/dL (12.0-15.0); MCH 30.5 pg (27.0-32.0); MCHC 33.2 d/dL (32.0-37.0); Mean Platelet Volume 9.6 FL (9.5-12.2); NRBC Per 100 WBC 0 X 10*3/uL (0.00-0.01); Platelet Count 317 X 10*3/uL (140-440); RBC 4.75 X 10*6/uL (4.10-5.20); RDW 12.2 % (11.5-14.5); WBC 4.71 X 10*3/uL (4.50-10.00)
[2023-06-02 23:02] LABS: Bacteria,Urine Trace; Calcium Oxalate Crystals,Urine Present (None Seen)
== END | disposition home or self-care (01) ==
LOC: LABPAT 13:44
PROVIDERS: ATTEND Orthopaedic Surgery
DX: Z01.818 Encounter for other preprocedural examination (principal); M16.11 Unilateral primary osteoarthritis, right hip; R94.31 Abnormal electrocardiogram [ECG] [EKG]
CPT/HCPCS: 80053; 81001; 85027; 85610; 85730; 87070; 93005

== ENCOUNTER 2023-06-09 05:32 | Observation (INO) | payer MEDICARE ==
[2023-06-01 14:32] VITALS: BMI 34.2
[~2023-06-09 05:32] MED LIST changes: -.fentaNYL (PF) 50 MCG/ML 2 ML AMP IV PRN; +ACETAMINOPHEN TAB 500 MG TAB PO PRN; -ACETAMINOPHEN TAB 500 MG TAB PO STA; -DEXAMETHASONE SOD PHOSPHATE 4 MG/ML 1 ML VIAL IV ONE; +GABAPENTIN 300 MG CAP PO PRN; -GABAPENTIN 300 MG CAP PO STA; -HEPARIN SODIUM,PORCINE/PF 5,000 UNIT/0.5 ML SYRINGE SQ PRN; -INDOCYANINE GREEN 25 MG VIAL IV STA; -LACTATED RINGERS 1,000 ML IV SCH; +MELOXICAM 7.5 MG TAB PO PRN; -MELOXICAM 7.5 MG TAB PO STA; -MIDAZOLAM 2 MG/2 ML VIAL IV PRN; -ONDANSETRON 4 MG/2 ML VIAL IVP ONE; -SCOPOLAMINE 1.5MG/72HR PATCH TRANSDERM SCH; +TRANEXAMIC 1,000 MG/100ML-NACL 1,000 MG in SALINE 1 100ML.BAG IVPB PRN
[2023-06-09] MEDS ORDERED: DEXAMETHASONE SOD PHOSPHATE 4 MG/ML 1 ML VIAL IV ONE (06:06)
[2023-06-09] MEDS ORDERED: ONDANSETRON 4 MG/2 ML VIAL IVP ONE (06:06)
[2023-06-09] MEDS ORDERED: fentaNYL (PF) 50 MCG/ML 2 ML AMP IV PRN (06:06)
[2023-06-09] MEDS: LACTATED RINGERS 1,000 ML IV SCH (06:24)
[2023-06-09] MEDS ORDERED: MIDAZOLAM 2 MG/2 ML VIAL IVP ONE (06:49)
[2023-06-09] MEDS ORDERED: fentaNYL (PF) 50 MCG/ML 2 ML AMP ONE (06:56)
[2023-06-09] MEDS ORDERED: PROPOFOL 10 MG/ML 20 ML VIAL IV ONE (06:56)
[2023-06-09] MEDS ORDERED: MIDAZOLAM 2 MG/2 ML VIAL ONE (06:56)
[2023-06-09] MEDS ORDERED: PHENYLEPHRINE-0.9% NACL SYG 1,000 MCG/10 ML SYRINGE ONE (06:56)
[2023-06-09] MEDS ORDERED: ceFAZolin 1,000 MG in SODIUM CHLORIDE 0.9% 1,000 ML IRRIGATION ONE (07:00)
[2023-06-09] MEDS ORDERED: ROPIVACAINE 5 MG/ML 30 ML VIAL MISCELLANE ONE ×2 (07:24→08:03)
--- NOTE | 2023-06-09 08:09 | P.OP ---
Date of Procedure: 06/09/23 Preoperative Diagnosis: Severe osteoarthritis right hip Postoperative Diagnosis: Severe osteoarthritis right hip Procedure(s) Performed: Right total hip arthroplasty with a direct anterior approach Implants: [employer] Polarstem standard size 7 with a collar [employer] R3, 3 hole hemispherical acetabular shell, 50 mm [employer] Reflection 6.5 mm cancellus screw, 20 mm, 25 mm [employer] R3, XLPE 20 acetabular liner [employer] Oxinium femoral head 36 mm, +0 All components were press-fit. The articulation is Oxinium on polyethylene. Anesthesia: spinal Surgeon: Devin Alex Equipment Installer #1: Kathe Zaman Estimated Blood Loss (ml): 200 Pathology: none sent Condition: stable Disposition: PACU Indications for Procedure: After failure of conservative treatment we discussed the surgical and n onsurgical treatment options at length. Patient wishes to proceed with a total hip arthroplasty with a direct anterior approach. Complications specific to this procedure were discussed at length, including but not limited to infection, leg length discrepancy, dislocation, nerve injury, and fracture. Covid-19 was also discussed at length with the patient, and they are aware of the current policies and procedures. The patient was given the option of delaying surgery, but they elect to proceed knowing these risks. Patient is aware of all these complications and informed consent was obtained Operative Findings: The operative findings are consistent with severe osteoarthritis of the right hip Description of Procedure: The patient was seen and evaluated in the preoperative area and the consent was reviewed. The operative site was marked with a skin marker. The patient verified the procedure and operative site. A KERRY block was placed by anesthesia in the preoperative area. The patient was then brought to the operating room and given preoperative antibiotics intravenously. 1 g of Tranexamic acid was also given intravenously. A spinal anesthetic was administered by the anesthesia department. The patient was then placed on the Clifton table with the bony prominences well-padded. The hip area was then prepped with a ChloraPrep solution and draped in the usual sterile fashion. A universal timeout was then performed, which confirmed the patient's name, surgical site, ALLERGIES, and procedure being performed on the consent. Next the incision site was located at 1 cm distal and 4 cm lateral to the anterior superior iliac spine. The skin and subcutaneous tissues were sharply incised. Incision was carefully dissected down to the fascia overlying the tensor fascia savannah muscle. This fascia was then incised in line with the muscle fibers. Care was taken to stay laterally in order to avoid injuring the lateral femoral cutaneous nerve. Next, using blunt finger dissection, the tensor fascia savannah muscle was dissected off its investing fascia. The muscle was then carefully retracted laterally with a cobra retractor over the lateral neck of the femur. Next, the circumflex vessels were identified and cauterized using the Aquamantis device. The anterior hip capsule was then exposed. The capsule was then opened and an inverted T fashion. The retractors were then placed intracapsularly. The retractors were maintained intracapsular throughout the procedure. The proximal femur was then visualized. Fluoroscopic x-rays were then taken in order to evaluate the preoperative leg lengths. A small amount of traction was placed on the leg. The femoral neck was then osteotomized at the appropriate level above the lesser trochanter. A small wedge of bone was then removed from the remaining femoral head. Next, using a corkscrew the femoral head was removed from the acetabulum. On gross visual inspection, the femoral head had complete loss of articular cartilage and multiple periarticular osteophytes. The femoral head was then measured. Attention was then turned to the acetabulum. The acetabulum was exposed and any remaining labrum was excised. Sequential reaming of the acetabulum was performed using fluoroscopic guidance until there was a good bed of bleeding cancellus bone. When the appropriate size was reached, a trial was then placed. The position and fit of the trial was checked with fluoroscopy. The trial was then removed. Then, using fluoroscopic guidance, the final implant was impacted at 20 of anteversion and 40 of abduction, and fully seated in the acetabulum. 2 screws were then placed in the acetabulum. Again fluoroscopy was used to check position of the screws. Next, the liner was then impacted, with a 20 elevated liner located in the anterior superior quadrant. Component locking was confirmed. Attention was then directed to the femur. With the aid of the Clifton table, the femur was externally rotated to approximately 130, extended, and adducted under the opposite leg. A side hook was then placed under the proximal femur, and the side hook elevator was used to elevate the proximal femur while releasing the capsule. Retractors were then placed. A capsular release was performed, as well as a release of the conjoined tendon, which afforded excellent visualization of the proximal femur. Next, a box osteotome was used to lateralize the proximal femur. A deckhand clam dredge was then used to locate the femoral canal. Sequential broaching was then performed with appropriate size which afforded excellent fixation in the proximal femur. A trial was then placed with appropriate head and neck, and the hip was gently reduced with the aid of the Clifton table. Fluoroscopy was then used to check position of the components, as well as to evaluate the leg lengths and offset. The leg lengths and offset were measured as closely as possible to ensure stability of the hip. The hip was then gently dislocated and the trials were then removed. Final implants were then impacted and the hip was again reduced. Final fluoroscopic x-rays confirmed that the components were in anatomic position. The leg lengths and offset were measured and were found to coincide with the trial measurements. The hip was also taken through range of motion, and found to be stable. The hip was then copiously irrigated with antibiotic solution with pulsatile lavage. The hip was then irrigated with Irrisept solution. The soft tissues were then injected with a ropivacaine solution. A second dose of 1 g of Tranexamic acid was also given intravenously. The fascia was then closed with 2-0 strata fix suture. The subcutaneous tissue was closed with 3-0 Vicryl. The subcuticular tissue was closed with 3-0 strata fix suture. The skin was then closed with Exofin skin glue. After the glue and dried, and Optifoam silver impregnated dressing was applied. The patient was then transferred to the recovery room in stable condition. The registered dental assistant rda EVITA De Jesus was required due to the complexity of surgery, and the need for skilled manager surgical for positioning, draping, exposure, retraction, and closure of the wound.
[2023-06-09] MEDS ORDERED: HYDROmorphone 0.5 MG/0.5 ML SYRINGE IVP PRN ×2 (08:34)
[2023-06-09] MEDS ORDERED: MAGNESIUM HYDROXIDE 2,400 MG/30 ML CUP PO PRN (08:34)
[2023-06-09] MEDS ORDERED: NALOXONE 0.4 MG/ML 1 ML VIAL IV PRN (08:34)
[2023-06-09] MEDS ORDERED: HYDROcodone/APAP 7.5-325MG 1 EACH TAB PO PRN (08:36)
--- NOTE | 2023-06-09 08:49 | P.ANPRN ---
Procedure Note - Anesthesia - Nerve Block Performed Right Dwight Single Time Out Performed: Yes ([id number]) Date of Procedure: 06/09/23 Procedure Start Time: 06:49 Procedure Stop Time: 06:55 Location of Patient: PreOp Indication: Acute Post-Operative Pain, Requested by Surgeon Specifically requested for management of pain by DrRamin: Devin Alex Sedation Type: Sedate with meaningful contact maintained Preparation: Sterile Prep Position: Supine Catheter: None Needle Types: [place]ajunk Needle Gauge: 21 Ultrasound used to visualize needle placement: Yes Ultrasound used to observe medication spread: Yes Injectate: 0.5% Ropivacaine (see comment for volume) (30cc) Blood Aspirated: No Pain Paresthesia on Injection Noted: No Resistance on Injection: Normal Image Stored and Saved: Yes Events: Uneventful and Well Tolerated
--- NOTE | 2023-06-09 09:18 | FL ---
Fluoroscopy History: Rt Hip-Ant Rt Hip-Ant 55sec fluoro time 3.6034 DAP
--- NOTE | 2023-06-09 11:09 | XR ---
Fluoroscopy History: Rt Hip-Ant Rt Hip-Ant
[2023-06-09] MEDS: HYDROmorphone 0.5 MG/0.5 ML SYRINGE IVP ONE ×2 (12:10→12:45)
[2023-06-09] MEDS: ONDANSETRON 4 MG/2 ML VIAL IVP PRN (13:43)
--- NOTE | 2023-06-09 14:29 | P.CONS ---
History of Present Illness - Reason for Consult Perioperative complication management - History of Present Illness 72-year-old female admitted for elective right fundoplasty patient pain is fairly well-controlled patient denied any fever chills nausea vomiting abdominal pain dysuria. REVIEW OF SYSTEMS: CONSTITUTIONAL: No fever, no malaise, no fatigue. HEENT: No recent visual problems or hearing problems. Denied any sore throat. CARDIOVASCULAR: No chest pain, orthopnea, PND, no palpitations, no syncope. PULMONARY: No shortness of breath, no cough, no hemoptysis. GASTROINTESTINAL: No diarrhea, no nausea, no vomiting, no abdominal pain. NEUROLOGICAL: No headaches, no weakness, no numbness. HEMATOLOGICAL: Denies any bleeding or petechiae. GENITOURINARY: Denies any burning micturition, frequency, or urgency. MUSCULOSKELETAL/RHEUMATOLOGICAL: Denies any joint pain, swelling, or any muscle pain. ENDOCRINE: Denies any polyuria or polydipsia. The rest of the 14-point review of systems is negative. PHYSICAL EXAMINATION: GENERAL: The patient is alert and oriented x3, not in any acute distress. Well developed, well nourished. HEENT: Pupils are round and equally reacting to light. EOMI. No scleral icterus. No conjunctival pallor. Normocephalic, atraumatic. No pharyngeal erythema. No thyromegaly. CARDIOVASCULAR: S1 and S2 present. No murmurs, rubs, or gallops. PULMONARY: Chest is clear to auscultation, no wheezing or crackles. ABDOMEN: Soft, nontender, nondistended, normoactive bowel sounds. No palpable organomegaly. MUSCULOSKELETAL: No joint swelling or deformity. EXTREMITIES: No cyanosis, clubbing, or pedal edema. NEUROLOGICAL: Gross neurological examination did not reveal any focal deficits. SKIN: No rashes. Assessment and plan -Right hip arthroplasty: Patient pain is fairly well controlled continue with present pain medications -Hyperlipidemia patient was resumed on atorvastatin -Hypothyroidism: continue with 150 g of levothyroxine DVT prophylaxis: As per primary service Past Medical History Past Medical History: Hyperlipidemia, Osteoarthritis (OA), Thyroid Disorder Additional Past Medical History / Comment(s): Vertigo, episode of fainting in the past-not cardiac related History of Any Multi-Drug Resistant Organisms: None Reported Past Surgical History: Back Surgery, Cholecystectomy, Heart Catheterization, Hysterectomy, Joint Replacement, Orthopedic Surgery Additional Past Surgical History / Comment(s): Left knee replacement, Loop recorder placed /later removed, right knee arthroscopy. Past Anesthesia/Blood Transfusion Reactions: Motion Sickness Additional Past Anesthesia/Blood Transfusion Reaction / Comm: vertigo hx Past Psychological History: No Psychological Hx Reported Smoking Status: Former smoker Past Alcohol Use History: None Reported Additional Past Alcohol Use History / Comment(s): Quit smoking approx 1970's, smoked approx 6 yrs, 1 PPD. Past Drug Use History: None Reported - Past Family History Father Family Medical History: Deep Vein Thrombosis (DVT) Additional Family Medical History / Comment(s): Heart problems. Mother Family Medical History: Deep Vein Thrombosis (DVT) Additional Family Medical History / Comment(s): Emphysema. Medications and Allergies Home Medications Medication Instructions Recorded Confirmed Type Atorvastatin [Lipitor] 40 mg PO DAILY 04/05/21 06/09/23 History Levothyroxine Sodium [Synthroid] 150 mcg PO DAILY 06/01/23 06/09/23 History traMADol HCL 50 mg PO HS 06/01/23 06/09/23 History Aspirin 325 mg PO BID #60 tab 06/09/23 Rx HYDROcodone/APAP 7.5-325MG [[place] 1 - 2 tab PO Q6H PRN #32 tab 06/09/23 Rx 7.5-325] Sennosides [Senokot] 2 tab PO DAILY PRN #60 tablet 06/09/23 Rx Allergies Allergy/AdvReac Type Severity Reaction Status Date / Time meperidine HCl [From Demerol] Allergy Rash/Hives Verified 06/09/23 06:07 codeine AdvReac Nausea & Verified 06/09/23 06:07 Vomiting Physical Exam Vitals: Vital Signs Temp Pulse Pulse Resp BP Pulse Ox 06/09/23 13:00 64 16 147/89 98 06/09/23 12:00 71 16 130/81 98 06/09/23 11:17 59 L 16 141/80 98 06/09/23 11:00 62 16 156/84 98 06/09/23 10:45 60 16 151/84 98 06/09/23 10:32 58 L 16 161/81 98 06/09/23 10:15 59 L 16 168/87 98 06/09/23 10:00 54 L 16 167/83 98 06/09/23 09:47 53 L 16 162/78 98 06/09/23 09:30 54 L 16 155/78 98 06/09/23 09:16 51 L 16 159/80 95 06/09/23 09:00 54 L 16 152/73 95 06/09/23 08:45 50 L 14 134/68 95 06/09/23 08:28 97.2 F L 61 12 118/75 95 06/09/23 06:51 67 14 149/72 97 06/09/23 06:48 69 14 168/79 99 06/09/23 06:24 97.4 F L 73 14 152/77 98 Intake and Output 06/08/23 06/09/23 06/09/23 22:59 06:59 14:59 Intake Total 651 Output Total 1000 Balance -349 Intake: IV 651 Output: Urine 800 Estimated Blood Loss 200 Other: Weight 100.7 kg
[2023-06-09] MEDS: SODIUM CHLORIDE 0.9% 1,000 ML IV SCH ×2 (16:40→23:38)
[2023-06-09] MEDS: HYDROmorphone 0.5 MG/0.5 ML SYRINGE IVP PRN ×2 (16:49→21:03)
[2023-06-09] MEDS: SENNOSIDES-DOCUSATE SODIUM 1 EACH TAB PO SCH (21:00)
[2023-06-09] MEDS: ASPIRIN 325 MG TAB PO SCH (21:00)
[2023-06-10] MEDS: HYDROcodone/APAP 7.5-325MG 1 EACH TAB PO PRN ×3 (01:58→20:14)
[2023-06-10] MEDS: LACTATED RINGERS 1,000 ML IV SCH (06:14)
[2023-06-10] MEDS: LEVOTHYROXINE 75 MCG TAB PO SCH (06:41)
[2023-06-10] MEDS: HYDROmorphone 0.5 MG/0.5 ML SYRINGE IVP PRN (06:46)
[2023-06-10] MEDS: ONDANSETRON 4 MG/2 ML VIAL IVP PRN (09:20)
[2023-06-10] MEDS: ASPIRIN 325 MG TAB PO SCH ×2 (09:21→20:14)
[2023-06-10] MEDS: ATORVASTATIN 40 MG TAB PO SCH (09:21)
[2023-06-10] MEDS ORDERED: KETOROLAC 15 MG/ML 1 ML VIAL IVP PRN (09:55)
--- NOTE | 2023-06-10 09:58 | P.PN ---
Subjective Progress Note Date: 06/10/23 This is a 72-year-old female who is status post right total hip arthroplasty. This is postoperative day #1 and patient is seen and evaluated at bedside with Dr. Devin Alex. Patient states that she is feeling quite nauseous this morning, possibly from the pain medication. Per nursing, the patient was able to ambulate around the room yesterday. Patient states that she has not worked with physical therapy yet this morning. Objective - Vital Signs Vital signs: Vital Signs Temp 98.2 F 06/10/23 07:38 Pulse 65 06/10/23 07:38 Resp 19 06/10/23 07:38 BP 129/72 06/10/23 07:38 Pulse Ox 100 06/10/23 07:38 FiO2 Intake & Output 06/09/23 06/10/23 06/10/23 18:59 06:59 18:59 Intake Total 651 Output Total 1000 Balance -349 Weight 100.7 kg Intake: IV 651 Output: Urine 800 Estimated Blood Loss 200 Other: Voiding Method Bedpan # Voids 1 2 - Exam Vital signs are stable. Patient is in no acute distress and is alert and oriented 3. Calf is soft and nontender to palpation. Dressing is clean, dry, and intact. Patient has full foot and ankle motion without pain or difficulty. Sensation intact. Neurovascular status and circulatory status are intact. Assessment and Plan (1) Osteoarthritis of right hip Current Visit: Yes Status: Acute Code(s): M16.11 - UNILATERAL PRIMARY OSTEOARTHRITIS, RIGHT HIP SNOMED Code(s): 134319314987067 (2) S/P total hip arthroplasty Current Visit: Yes Status: Acute Code(s): Z96.649 - PRESENCE OF UNSPECIFIED ARTIFICIAL HIP JOINT SNOMED Code(s): 649559621515 Plan: Continue routine postop care and pain control. Continue anticoagulation with aspirin. Weightbearing as tolerated with a walker. Leave dressing in place for 7 days. Appreciate input from medicine. Anticipate discharge home with homecare later today or tomorrow.
[2023-06-10 12:01] LABS: Basophils # (A) 0.04 X 10*3/uL (0.00-0.10); Basophils % (A) 0.4 %; Crenated RBC 2+; Eosinophils # (A) 0.09 X 10*3/uL (0.04-0.35); HCT 37.2 % (37.2-46.3); HGB 12.2 d/dL (12.0-15.0); Lymphocytes # (A) 1.25 X 10*3/uL (0.90-5.00); Lymphocytes % (A) 13.4 %; MCH 30.4 pg (27.0-32.0); MCHC 32.8 d/dL (32.0-37.0); MCV 92.8 FL (80.0-97.0); Mean Platelet Volume 10.4 FL (9.5-12.2); Monocytes # (A) 0.87 X 10*3/uL (0.20-1.00); Monocytes % (A) 9.3 %; NRBC Per 100 WBC 0 X 10*3/uL (0.00-0.01); Neutrophils # (A) 7.02 X 10*3/uL (1.80-7.70); Neutrophils % (A) 75.5 %; Platelet Count 270 X 10*3/uL (140-440); RBC 4.01 X 10*6/uL (4.10-5.20); RDW 12.5 % (11.5-14.5); WBC 9.31 X 10*3/uL (4.50-10.00)
[2023-06-10] MEDS: SODIUM CHLORIDE 0.9% 1,000 ML IV SCH (14:49)
[2023-06-10] MEDS ORDERED: METOCLOPRAMIDE 5 MG/ML 2 ML VIAL IVP PRN (14:57)
[2023-06-10] MEDS: SENNOSIDES-DOCUSATE SODIUM 1 EACH TAB PO SCH (20:13)
[2023-06-11] MEDS: SODIUM CHLORIDE 0.9% 1,000 ML IV SCH (04:29)
--- NOTE | 2023-06-11 06:02 | P.PN ---
Subjective Progress Note Date: 06/10/23 - Reason for Consult Perioperative complication management - History of Present Illness 72-year-old female admitted for elective right hip arthroplasty patient pain is fairly well-controlled patient denied any fever chills nausea vomiting abdominal pain dysuria. 06/10/2023 Patient is seen in follow-up today status post right total hip arthroplasty and sitting up in the chair. Patient was hip work with physical therapy and did okay although having some difficulty due to excessive nausea. Patient had just received Dilaudid with possible medication effect. Patient was given Zofran and reports the nausea is subsiding and will add Reglan as needed to control nausea symptoms. Patient being transitioned to Toradol and [place] per orthopedics. Bandar emanuel reports to voiding with no difficulties and reports passing gas but no bowel movement. Patient is afebrile denies chest pain or shortness of breath. Patient reports is eating although not much of an appetite currently she is experiencing some nausea. Patient will likely be monitored overnight for nausea and pain control with possible discharge per orthopedics in the a.m. Review of systems: Constitutional: No reports of fatigue, fever, or chills Cardiovascular: No reports of chest pain or palpitations Respiratory: No reports of shortness of breath or cough GI: reports of nausea, no vomiting, or diarrhea, reports passing gas and no bowel movement yet : No reports of dysuria or retention Neurovascular: reports of generalized weakness All medications have been reviewed PHYSICAL EXAMINATION: GENERAL: The patient is alert and oriented x3, not in any acute distress. Well developed, well nourished. Obese HEENT: Pupils are round and equally reacting to light. EOMI. No scleral icterus. No conjunctival pallor. Normocephalic, atraumatic. No pharyngeal erythema. No thyromegaly. CARDIOVASCULAR: S1 and S2 present. No murmurs, rubs, or gallops. PULMONARY: Chest is clear to auscultation, no wheezing or crackles. ABDOMEN: Soft, nontender, nondistended, normoactive bowel sounds. No palpable organomegaly. MUSCULOSKELETAL: No joint swelling or deformity. EXTREMITIES: No cyanosis, clubbing, or pedal edema. Right hip dressing is dry and intact and soft on palpation NEUROLOGICAL: Gross neurological examination did not reveal any focal deficits. SKIN: No rashes. Assessment: -Right hip arthroplasty: Patient pain is fairly well controlled continue with present pain medications -Hyperlipidemia -Hypothyroidism -Obesity with a BMI of 38.1 -DVT prophylaxis: As per primary service -GI prophylaxis -Full code Plan: Patient continue with pain management and DVT prophylaxis per orthopedics. Patient was having some increased nausea after receiving Dilaudid and Dilaudid i s being discontinued. Patient being admitted Toradol and will continue to [place] Continue with Zofran and have added Reglan as needed If Zofran is not effective Encouraged continued incentive spirometer use at least 10 times every hour while awake Encourage small frequent meals We will continue to follow with orthopedic surgery hospitalization. Thank you kindly for this consultation. The impression and plan of care has been dictated by Jaquelin Santiago, Nurse Practitioner as directed. Dr. Anahi MD I have performed a history and examination and MDM of this patient, discussed the same with the dictator, and agree with the dictator's assessment and plan as written ,documented as a scribe. Based on total visit time, I have performed more than 50% of the visit. Objective - Vital Signs Vital signs: Vital Signs Temp 98.2 F 06/10/23 07:38 Pulse 65 06/10/23 07:38 Resp 19 06/10/23 07:38 BP 129/72 06/10/23 07:38 Pulse Ox 100 06/10/23 07:38 FiO2 Intake & Output 06/09/23 06/10/23 06/10/23 18:59 06:59 18:59 Intake Total 651 Output Total 1000 Balance -349 Weight 100.7 kg Intake: IV 651 Output: Urine 800 Estimated Blood Loss 200 Other: Voiding Method Bedpan # Voids 1 2 - Labs CBC & Chem 7: 06/10/23 07:08
[2023-06-11] MEDS: LACTATED RINGERS 1,000 ML IV SCH (06:17)
[2023-06-11] MEDS: LEVOTHYROXINE 75 MCG TAB PO SCH (06:32)
[2023-06-11] MEDS: HYDROcodone/APAP 7.5-325MG 1 EACH TAB PO PRN ×2 (06:32→13:22)
[2023-06-11] MEDS: ASPIRIN 325 MG TAB PO SCH (08:12)
[2023-06-11] MEDS: ATORVASTATIN 40 MG TAB PO SCH (08:12)
--- NOTE | 2023-06-11 09:51 | P.DS ---
Providers Date of admission: 06/10/23 13:18 Expected date of discharge: 06/11/23 Attending physician: Devin Alex Consults: 06/09/23 08:34 Consult Physician Routine Consulting Provider: Nick Browne Consult Reason/Comments: medical management Do you want consulting provider notified?: Yes Primary care physician: Tuan Bermudez - Discharge Diagnosis(es) (1) Osteoarthritis of right hip Current Visit: Yes Status: Acute (2) S/P total hip arthroplasty Current Visit: Yes Status: Acute Hospital Course: This is a 72-year-old female with known history of degenerative arthritis of the right hip. The patient presents for evaluation. After discussion and consideration patient elects to proceed with total hip arthroplasty. The patient is seen preoperatively by Dr. Alex and cleared for surgery. Patient is admitted to [facility] on 06/09/2023 for total hip arthroplasty. The procedures performed without complication or sequelae. The patient is doing well postoperatively. Labs and vital signs are stable on day of discharge. On day of discharge patient's hip incision is healing well. There is minimal erythema. There is no drainage noted at this time. There is minimal soft tissue swelling to the hip and thigh. Patient has full foot and ankle motion without difficulty or pain. Neurovascular status to the right lower extremity is intact. Patient is discharged home in good condition. Please see med rec for accurate list of home medications. Plan - Discharge Summary Discharge Rx Participant: No New Discharge Prescriptions: New Aspirin 325 mg PO BID #60 tab HYDROcodone/APAP 7.5-325MG [[place] 7.5-325] 1 - 2 tab PO Q6H PRN #32 tab PRN Reason: Pain Sennosides [Senokot] 2 tab PO DAILY PRN #60 tablet PRN Reason: Constipation Magnesium Hydroxide [Milk of Magnesia] 2,400 mg PO DAILY PRN ml PRN Reason: Constipation Continue Atorvastatin [Lipitor] 40 mg PO DAILY traMADol HCL 50 mg PO HS Levothyroxine Sodium [Synthroid] 150 mcg PO DAILY Discharge Medication List Atorvastatin [Lipitor] 40 mg PO DAILY 04/05/21 [History] Levothyroxine Sodium [Synthroid] 150 mcg PO DAILY 06/01/23 [History] traMADol HCL 50 mg PO HS 06/01/23 [History] Aspirin 325 mg PO BID #60 tab 06/09/23 [Rx] HYDROcodone/APAP 7.5-325MG [[place] 7.5-325] 1 - 2 tab PO Q6H PRN #32 tab 06/09/23 [Rx] Sennosides [Senokot] 2 tab PO DAILY PRN #60 tablet 06/09/23 [Rx] Magnesium Hydroxide [Milk of Magnesia] 2,400 mg PO DAILY PRN ml 06/10/23 [Rx] Follow up Appointment(s)/Referral(s): [facility], [NON-STAFF] - As Needed Devin Alex DO [Doctor of Osteopathic Medicine] - 2 Weeks Activity/Diet/Wound Care/Special Instructions: Weightbearing as tolerated with walker. Leave dressing intact. Dressing may be removed by home care nurse or by patient in 7 days. Then change dressing twice daily until follow up. May shower with initial dressing intact and after removal. If dressing become saturated, please remove. Please take aspirin 325mg twice daily for 30 days to prevent blood clots. Recommend use of compression stockings daily until follow up to help prevent swelling and blood clots. May remove at night before sleeping. Please follow-up with [facility] in 2 weeks and call with any questi ons or concerns, .
[2023-06-11 13:31] VITALS: BP 122/80; PULSE 79; RESP 16; TEMP 98.1
--- NOTE | 2023-06-11 15:53 | P.PN ---
Subjective Progress Note Date: 06/11/23 - Reason for Consult Perioperative complication management - History of Present Illness 72-year-old female admitted for elective right hip arthroplasty patient pain is fairly well-controlled patient denied any fever chills nausea vomiting abdominal pain dysuria. 06/10/2023 Patient is seen in follow-up today status post right total hip arthroplasty and sitting up in the chair. Patient was hip work with physical therapy and did okay although having some difficulty due to excessive nausea. Patient had just received Dilaudid with possible medication effect. Patient was given Zofran and reports the nausea is subsiding and will add Reglan as needed to control nausea symptoms. Patient being transitioned to Toradol and [place] per orthopedics. Bandar emanuel reports to voiding with no difficulties and reports passing gas but no bowel movement. Patient is afebrile denies chest pain or shortness of breath. Patient reports is eating although not much of an appetite currently she is experiencing some nausea. Patient will likely be monitored overnight for nausea and pain control with possible discharge per orthopedics in the a.m. 06/11/2023 Patient was seen and evaluated reports doing somewhat better today. Patient is tolerating diet further nausea or vomiting noted. Pain is controlled currently on current regimen and orthopedics is planning on discharging patient. Patient is afebrile with no reported chest pain or shortness of breath. Patient is tolerating diet with no reported nausea or vomiting. Patient has been instructed to follow-up with primary care provider at next scheduled appointment. Patient encouraged to keep follow-up appointments with orthopedics. Encouraged elevating lower extremity while at rest and continue w ith incentive spirometer even at home. Patient is medically stable for discharge today. Review of systems: Constitutional: No reports of fatigue, fever, or chills Cardiovascular: No reports of chest pain or palpitations Respiratory: No reports of shortness of breath or cough GI: No further reports of nausea, no vomiting, or diarrhea, reports passing gas and no bowel movement yet : No reports of dysuria or retention Neurovascular: reports of generalized weakness All medications have been reviewed PHYSICAL EXAMINATION: GENERAL: The patient is alert and oriented x3, not in any acute distress. Well developed, well nourished. Obese HEENT: Pupils are round and equally reacting to light. EOMI. No scleral icterus. No conjunctival pallor. Normocephalic, atraumatic. No pharyngeal erythema. No thyromegaly. CARDIOVASCULAR: S1 and S2 present. No murmurs, rubs, or gallops. PULMONARY: Chest is clear to auscultation, no wheezing or crackles. ABDOMEN: Soft, nontender, nondistended, normoactive bowel sounds. No palpable organomegaly. MUSCULOSKELETAL: No joint swelling or deformity. EXTREMITIES: No cyanosis, clubbing, or pedal edema. Right hip dressing is dry and intact and soft on palpation NEUROLOGICAL: Gross neurological examination did not reveal any focal deficits. SKIN: No rashes. Assessment: -Right hip arthroplasty: Patient pain is fairly well controlled continue with present pain medications -Hyperlipidemia -Hypothyroidism -Obesity with a BMI of 38.1 -DVT prophylaxis: As per primary service -GI prophylaxis -Full code Plan: Patient continue with pain management and DVT prophylaxis per orthopedics. Patient was having some increased nausea although has subsided and pain is controlled on current regimen Encouraged continued incentive spirometer use at least 10 times every hour while awake. Patient encouraged to take home and continue using Patient is medically stable for discharge today. Patient has been instructed to follow-up with orthopedics outpatient as well as her primary care provider. We will continue to follow with orthopedic surgery hospitalization. Thank you kindly for this consultation. The impression and plan of care has been dictated by Jaquelin Santiago, Nurse Practitioner as directed. Dr. Anahi MD I have performed a history and examination and MDM of this patient, discussed the same with the dictator, and agree with the dictator's assessment and plan as written ,documented as a scribe. Based on total visit time, I have performed more than 50% of the visit. Objective - Vital Signs Vital signs: Vital Signs Temp 97.8 F 06/11/23 11:16 Pulse 88 06/11/23 06:58 Resp 17 06/11/23 06:58 BP 122/74 06/11/23 06:58 Pulse Ox 91 L 06/11/23 06:58 FiO2 Intake & Output 06/10/23 06/11/23 06/11/23 18:59 06:59 18:59 Other: Voiding Method Toilet # Voids 2 1 - Labs CBC & Chem 7: 06/10/23 07:08 Labs: Abnormal Lab Results - Last 24 Hours (Table) 06/10/23 Range/Units 07:08 RBC 4.01 L (4.10-5.20) X 10*6/uL Crenated Cell 2+ A
[2023-06-12 00:56] LABS: BUN/Creat Ratio 17.44 Ratio (12.00-20.00); Blood Urea Nitrogen 15.7 mg/dL (9.0-27.0); Calcium 9.1 mg/dL (8.7-10.3); Carbon Dioxide 24.5 mmol/L (21.6-31.8); Chloride 106 mmol/L (96-109); Glucose 100 mg/dL (70-110); Sodium 140 mmol/L (135-145)
== END 2023-06-11 16:37 | disposition home health service (06) ==
LOC: OR 05:32 → 4SSUR 08:28 → OR 06-10 13:18
PROVIDERS: ADMIT Orthopaedic Surgery; ATTEND Orthopaedic Surgery
DX: M16.11 Unilateral primary osteoarthritis, right hip (principal); E78.5 Hyperlipidemia, unspecified; E03.9 Hypothyroidism, unspecified; Z79.899 Other long term (current) drug therapy; Z79.82 Long term (current) use of aspirin; Z79.890 Hormone replacement therapy; M19.90 Unspecified osteoarthritis, unspecified site; Z96.652 Presence of left artificial knee joint; Z87.891 Personal history of nicotine dependence; Z82.5 Family history of asthma and other chronic lower respiratory diseases; Z83.2 Family history of diseases of the blood and blood-forming organs and certain disorders involving the immune mechanism; Z88.5 Allergy status to narcotic agent; Z68.38 Body mass index [BMI] 38.0-38.9, adult; E66.9 Obesity, unspecified; Z96.641 Presence of right artificial hip joint
CPT/HCPCS: 27130; 97116; 97162; 97535; 97166; 86900; 86901; 80048; 85025; 86850; 73501; G0378 ×2; C1776; J2250; J1100; J0690 ×2; J2405 ×2; J3010; J2795; J2704; J1170 ×2; J2371

== ENCOUNTER → 2023-06-17 | Outpatient (CLI) | payer MEDICARE ==
--- NOTE | 2023-06-17 16:25 | US ---
EXAMINATION TYPE: US venous doppler duplex LE BI DATE OF EXAM: 06/17/2023 4:11 PM COMPARISON: US 03/19/2023 CLINICAL INDICATION: Female, 72 years old with history of R60.0 LOCAL EDEMA; No hx of DVT. Patient ta kes aspirin. Hx right total hip replacement 8 days ago. SIDE PERFORMED: Bilateral TECHNIQUE: The lower extremity deep venous system is examined utilizing real time linear array sonog nena with graded compression, doppler sonography and color-flow sonography. VESSELS IMAGED: Common Femoral Vein Deep Femoral Vein Greater Saphenous Vein * Femoral Vein Popliteal Vein Small Saphenous Vein * Proximal Calf Veins (* superficial vessels) Right Leg: No evidence of DVT. Left Leg: No evidence of DVT. IMPRESSION: No evidence for deep venous thrombosis of the bilateral lower extremities.
== END | disposition home or self-care (01) ==
LOC: RADUSWWP 15:44
PROVIDERS: ATTEND Family Medicine
DX: R60.0 Localized edema (principal); Z96.641 Presence of right artificial hip joint; Z79.82 Long term (current) use of aspirin
CPT/HCPCS: 93970

== ENCOUNTER → 2023-11-13 | Outpatient (CLI) | payer MEDICARE ==
--- NOTE | 2023-11-16 19:30 | MM ---
Reason for Exam: Screening (asymptomatic). Last screening mammogram was performed 12 month(s) ago. Patient History: Menarche at age 9. First Full-Term at age 18. Left ovary removed at age 46. Right ovary removed at age 46. Hysterectomy at age 46. Postmenopausal. Patient has history of breast feeding. Estrogen for 10 years from age 48 until age 58. Risk Values: Trinity 5 year model risk: 1.7%. NCI Lifetime model risk: 3.8%. Prior Study Comparison: 07/27/2020 Bilateral Screening Mammogram, [facility]. 08/20/2021 Bilateral Screening Mammogram, [facility]. 10/28/2022 Bilateral MG 3D screening mammo w/cad, [facility]. Tissue Density: There are scattered fibroglandular densities. Findings: Analyzed By CAD. Chronic nodularity subareolar right breast and medial left breast. Unchanged medial area of fat necrosis calcification on the left. There is no suspicious group of microcalcifications or new suspicious mass in either breast. Overall Assessment: Benign, BI-RAD 2 Management: Screening Mammogram of both breasts in 1 year. . Patient should continue monthly self-breast exams. A clinical breast exam by your physician is recommended on an annual basis. This exam should not preclude additional follow-up of suspicious palpable abnormalities. Note on Trinity scores and lifetime risk: 1. A Trinity score greater than 3% is considered moderate risk. If this is the case, consider specialist referral to assess eligibility for a risk reducing agent. 2. If overall lifetime risk for the development of breast cancer is 20% or higher, the patient may qualify for future screening with alternating mammogram and breast MRI. Electronically signed and approved by: Susan Fournier M.D. Radiologist
== END | disposition home or self-care (01) ==
LOC: RADMAMWWP 13:53
PROVIDERS: ATTEND Family Medicine
DX: Z12.31 Encounter for screening mammogram for malignant neoplasm of breast (principal); Z78.0 Asymptomatic menopausal state
CPT/HCPCS: 77063; 77067

== ENCOUNTER 2024-06-08 09:25 | Day surgery (SDC) | payer MEDICARE ==
[2024-06-08] MEDS ORDERED: LACTATED RINGERS 1,000 ML BAG ONE (10:35)
[2024-06-08] MEDS ORDERED: PROPOFOL 10 MG/ML 20 ML VIAL IV ONE (10:35)
--- NOTE | 2024-08-15 16:27 | P.GSHP ---
History of Present Illness H&P Date: 06/08/24 CHIEF COMPLAINT: GERD and colon screen HISTORY OF PRESENT ILLNESS: The patient is a 73-year-old female who presents with gastroesophageal reflux disease and need for colon screen. Upper and lower endoscopy were offered for further evaluation and management. PAST MEDICAL HISTORY: Please see list. PAST SURGICAL HISTORY: Please see list. MEDICATIONS: Please see list. ALLERGIES: Please see list. SOCIAL HISTORY: No illicit drug use FAMILY HISTORY: No reports of Crohn disease or ulcerative colitis. REVIEW OF ORGAN SYSTEMS: CONSTITUTIONAL: No reports of fevers or chills. GI: Denies any blood in stools or constipation. PHYSICAL EXAM: VITAL SIGNS: Stable GENERAL: Well-developed pleasant in no acute distress. HEENT: No scleral icterus. Extraocular movements grossly intact. Moist buccal mucosa. NECK: Supple without lymphadenopathy. CHEST: Unlabored respirations. Equal bilateral excursions. CARDIOVASCULAR: Regular rate and rhythm. Distal 2+ pulses. ABDOMEN: Soft, nondistended. MUSCULOSKELETAL: No clubbing, cyanosis, or edema. ASSESSMENT: 1. Gastroesophageal reflux disease 2. Colon screen. PLAN: 1. Recommend proceeding with an upper and lower endoscopy Past Medical History Past Medical History: Hyperlipidemia, Osteoarthritis (OA), Thyroid Disorder Additional Past Medical History / Comment(s): Vertigo, episode of fainting in the past 2019-didn't machine turner to be cardiac related, gallstones per CT scan History of Any Multi-Drug Resistant Organisms: None Reported Past Surgical History: Back Surgery, Heart Catheterization, Hysterectomy, Joint Replacement Additional Past Surgical History / Comment(s): Left knee replacement, Loop recorder placed /later removed, right knee arthroscopy. Past Anesthesia/Blood Transfusion Reactions: Motion Sickness Additional Past Anesthesia/Blood Transfusion Reaction / Comment(s): vertigo hx Past Psychological History: No Psychological Hx Reported Smoking Status: Former smoker Past Alcohol Use History: None Reported Additional Past Alcohol Use History / Comment(s): Quit smoking approx 1970's, smoked approx 6 yrs, 1 PPD. Past Drug Use History: None Reported - Past Family History Father Family Medical History: Deep Vein Thrombosis (DVT) Additional Family Medical History / Comment(s): Heart problems. Mother Family Medical History: Deep Vein Thrombosis (DVT) Additional Family Medical History / Comment(s): Emphysema. Medications and Allergies Home Medications Medication Instructions Recorded Confirmed Type Atorvastatin [Lipitor] 40 mg PO DAILY 04/05/21 06/09/23 History Levothyroxine Sodium [Synthroid] 150 mcg PO DAILY 06/01/23 06/09/23 History traMADol HCL 50 mg PO HS 06/01/23 06/09/23 History Aspirin 325 mg PO BID #60 tab 06/09/23 Rx HYDROcodone/APAP 7.5-325MG [[place] 1 - 2 tab PO Q6H PRN #32 tab 06/09/23 Rx 7.5-325] Sennosides [Senokot] 2 tab PO DAILY PRN #60 tablet 06/09/23 Rx Magnesium Hydroxide [Milk of 2,400 mg PO DAILY PRN ml 06/10/23 Rx Magnesia] Ondansetron Odt [Zofran Odt] 1 tab PO Q8HR PRN #10 tab 06/11/23 Rx Allergies Allergy/AdvReac Type Severity Reaction Status Date / Time meperidine HCl [From Demerol] Allergy Rash/Hives Verified 06/09/23 06:07 codeine AdvReac Nausea & Verified 06/09/23 06:07 Vomiting
--- NOTE | 2024-08-15 16:37 | P.PCN ---
Date of Procedure: 06/08/24 Description of Procedure: PREOPERATIVE DIAGNOSIS: Gastroesophageal reflux disease. Diaphragmatic hiatal hernia POSTOPERATIVE DIAGNOSIS: Gastroesophageal reflux disease. Gastritis. Diaphragmatic hiatal hernia OPERATION: Esophagogastroduodenoscopy with biopsies along esophagus, antrum and duodenum SURGEON: Tiffany Travis MD ANESTHESIA: MAC. INDICATIONS: The patient is a 73-year-old female who presents with reflux disease. Benefits and risks of the procedure were described. Informed consent was obtained. DESCRIPTION: The patient was brought into the endoscopy suite and laid in the left lateral decubitus position. An Olympus gastroscope was passed along the posterior oropharynx down to the distal esophagus where the squamocolumnar junction was encountered at 39 cm from the incisors. The stomach was entered and no bile reflux was found. Additional findings are listed below. Biopsies with cold forceps were obtained of the antrum. The first through third portion of the duodenum was examined. Retroflexion of the scope confirmed Hill grade 3 lower esophageal valve. The squamocolumnar junction demonstrated LA grade B erosive esophagitis. The stomach was desufflated. The patient tolerated the procedure well. FINDINGS: Squamocolumnar junction 39 cm from the incisors. Diaphragmatic hiatus at 41 cm. Hiatal hernia, 2 cm Hill grade 3 lower esophageal valve. LA grade B erosive esophagitis. Biopsies obtained. Biopsies obtained of the duodenum. Chronic gastritis with biopsies obtained. RECOMMENDATIONS: Upper endoscopy as needed.
--- NOTE | 2024-08-15 16:40 | P.PCN ---
Date of Procedure: 06/08/24 Description of Procedure: PREOPERATIVE DIAGNOSIS: History of colon polyps Colonoscopy screening. Sigmoid diverticulosis POSTOPERATIVE DIAGNOSIS: Severe sigmoid diverticulosis with stricture OPERATION: Colonoscopy to the cecum, ileocecal valve and appendiceal orifice. SURGEON: Tiffany Travis MD. ANESTHESIA: MAC. INDICATIONS: The patient is a 73-year-old female who presents for colonoscopy screening. Colonoscopy 5 years ago. Benefits and risks were described and informed consent was obtained. DESCRIPTION OF PROCEDURE: The patient had undergone MiraLAX Gatorade prep. The patient had been brought into the operating room and laid in the left lateral decubitus position. After adequate intravenous sedation, the rectum was examined with 2% lidocaine jelly. No external hemorrhoids were encountered. The rectal tone was within normal limits. No lesions were palpated in the rectal vault. An Olympus colonoscope was advanced until the cecum, ileocecal valve and appendiceal orifice were clearly viewed. The prep was excellent. Severe sigmoid diverticulosis with stricture at 30 cm was encountered. No colonic polyps were found. No evidence of focal colitis was found. Retroflexion of the scope demonstrated grade 1 internal hemorrhoids without active bleeding or inflammation. The colon was desufflated. The patient had tolerated the procedure well. Withdrawal time was over 6 minutes. FINDINGS: Aronchick preparation quality scale 1 (1-5) Internal hemorrhoids, grade 1 No external prolapsed hemorrhoids. Severe sigmoid diverticulosis with stricture at 30 cm from the anal verge No arteriovenous malformations. No adenomatous polyps. No focal colitis. RECOMMENDATIONS: Due to symptomatic severe sigmoid diverticulosis with stricture, recommend colonic resection. Repeat colonoscopy in 5 years, 2028 Plan - Discharge Summary New Discharge Prescriptions: No Action Atorvastatin [Lipitor] 40 mg PO DAILY traMADol HCL 50 mg PO HS Aspirin 325 mg PO BID #60 tab HYDROcodone/APAP 7.5-325MG [[place] 7.5-325] 1 - 2 tab PO Q6H PRN #32 tab PRN Reason: Pain Sennosides [Senokot] 2 tab PO DAILY PRN #60 tablet PRN Reason: Constipation Ondansetron Odt [Zofran Odt] 1 tab PO Q8HR PRN #10 tab PRN Reason: Nausea Levothyroxine Sodium [Synthroid] 150 mcg PO DAILY Magnesium Hydroxide [Milk of Magnesia] 2,400 mg PO DAILY PRN ml PRN Reason: Constipation Discharge Medication List Atorvastatin [Lipitor] 40 mg PO DAILY 04/05/21 [History] Levothyroxine Sodium [Synthroid] 150 mcg PO DAILY 06/01/23 [History] traMADol HCL 50 mg PO HS 06/01/23 [History] Aspirin 325 mg PO BID #60 tab 06/09/23 [Rx] HYDROcodone/APAP 7.5-325MG [[place] 7.5-325] 1 - 2 tab PO Q6H PRN #32 tab 06/09/23 [Rx] Sennosides [Senokot] 2 tab PO DAILY PRN #60 tablet 06/09/23 [Rx] Magnesium Hydroxide [Milk of Magnesia] 2,400 mg PO DAILY PRN ml 06/10/23 [Rx] Ondansetron Odt [Zofran Odt] 1 tab PO Q8HR PRN #10 tab 06/11/23 [Rx]
== END 2024-06-08 11:57 ==
LOC: ORWHC2ENDO 09:25
PROVIDERS: ATTEND Surgery Plastic and Reconstructive Surgery
DX: K29.50 Unspecified chronic gastritis without bleeding
CPT/HCPCS: 43239; 45378; 88305

== ENCOUNTER 2025-01-23 18:49 | Emergency (ER) | payer MEDICARE ==
[2025-01-23 19:01] VITALS: TEMP 97.9
--- NOTE | 2025-01-23 19:33 | XR ---
EXAMINATION TYPE: XR wrist complete LT DATE OF EXAM: 01/23/2025 CLINICAL INDICATION: Female, 74 years old with history of fall deformity, pain. TECHNIQUE: 3Views of the wrist. COMPARISON: None FINDINGS: Osseous structures are demineralized. There is an acute impacted comminuted fracture distal radial metaphysis with likely intra-articular extension. There is incidental moderate to severe dege nerative change at the triscaphe joint and base of first metacarpal. Distal ulna grossly intact. Mild to moderate associated soft tissue swelling is seen. IMPRESSION: As above. [facility], , 01/23/2025 7:30 PM
--- NOTE | 2025-01-23 20:22 | ED ---
Upper Extremity HPI - General Chief Complaint: Extremity Injury, Upper Stated Complaint: Fall L Wrist Injury Time Seen by Provider: 01/23/25 19:06 Source: patient, family, RN notes reviewed Mode of arrival: wheelchair Limitations: no limitations - History of Present Illness Initial Comments: This is a 74-year-old female presenting with left wrist deformity following a fall from standing at 1730 today. Patient states her foot became tangled in a tarp, causing her to fall forward and landing on to her left outstretched hand with subsequent pain (8/10). Also endorses striking her chin on the deck without loss consciousness, subsequent headache, neck pain. Patient states she is right-handed and otherwise denies other significant injury. MD Complaint: Injury to:: left, wrist Onset/Timin -: hour(s) Time: 17:30 Other Extremity Injury: Wrist: Left Other Injuries: face Handedness: right Place: outdoors Severity scale (1-10): 8 Context: fall Associated Symptoms: denies other symptoms - Related Data Home Medications Medication Instructions Recorded Confirmed Atorvastatin [Lipitor] 40 mg PO DAILY 04/05/21 06/09/23 Levothyroxine Sodium [Synthroid] 150 mcg PO DAILY 06/01/23 06/09/23 traMADol HCL 50 mg PO HS 06/01/23 06/09/23 Previous Rx's Medication Instructions Recorded Aspirin 325 mg PO BID #60 tab 06/09/23 HYDROcodone/APAP 7.5-325MG [[place] 1 - 2 tab PO Q6H PRN #32 tab 06/09/23 7.5-325] Sennosides [Senokot] 2 tab PO DAILY PRN #60 tablet 06/09/23 Magnesium Hydroxide [Milk of 2,400 mg PO DAILY PRN ml 06/10/23 Magnesia] Ondansetron Odt [Zofran Odt] 1 tab PO Q8HR PRN #10 tab 06/11/23 Allergies Allergy/AdvReac Type Severity Reaction Status Date / Time meperidine HCl [From Demerol] Allergy Rash/Hives Verified 06/09/23 06:07 codeine AdvReac Nausea & Verified 06/09/23 06:07 Vomiting Review of Systems ROS Statement: Those systems with pertinent positive or pertinent negative responses have been documented in the HPI. ROS Other: All systems not noted in ROS Statement are negative. Past Medical History Past Medical History: Hyperlipidemia, Osteoarthritis (OA), Thyroid Disorder Additional Past Medical History / Comment(s): Vertigo, episode of fainting in the past 2019-didn't tube turner to be cardiac related, gallstones per CT scan History of Any Multi-Drug Resistant Organisms: None Reported Past Surgical History: Back Surgery, Heart Catheterization, Hysterectomy, Joint Replacement Additional Past Surgical History / Comment(s): Left knee replacement, Loop recorder placed /later removed, right knee arthroscopy. Past Anesthesia/Blood Transfusion Reactions: Motion Sickness Additional Past Anesthesia/Blood Transfusion Reaction / Comment(s): vertigo hx Past Psychological History: No Psychological Hx Reported Smoking Status: Former smoker Past Alcohol Use History: None Reported Past Drug Use History: None Reported - Past Family History Father Family Medical History: Deep Vein Thrombosis (DVT) Additional Family Medical History / Comment(s): Heart problems. Mother Family Medical History: Deep Vein Thrombosis (DVT) Additional Family Medical History / Comment(s): Emphysema. General Exam Limitations: no limitations General appearance: alert, in no apparent distress Head exam: Present: normocephalic, normal inspection, other (2 cm diameter abrasion of left chin without significant tenderness, crepitus or dental injury) Eye exam: Present: normal appearance, PERRL, EOMI. Absent: scleral icterus, conjunctival injection, periorbital swelling ENT exam: Present: normal exam, mucous membranes moist Neck exam: Present: normal inspection. Absent: tenderness, meningismus, lymphadenopathy Respiratory exam: Present: normal lung sounds bilaterally, accessory muscle use, decreased breath sounds, prolonged expiratory. Absent: respiratory distress, wheezes, rales, rhonchi, stridor Cardiovascular Exam: Present: regular rate, normal rhythm, normal heart sounds. Absent: systolic murmur, diastolic murmur, rubs, gallop, clicks GI/Abdominal exam: Present: soft, normal bowel sounds. Absent: distended, tenderness, guarding, rebound, rigid Extremities exam: Present: normal inspection, full ROM, tenderness (Positive left radial wrist tenderness and edema), normal capillary refill, other (Left hand distal neurovascular motor function intact. Pain with 2nd and 3rd digit flexion. Radial pulse +2). Absent: pedal edema, joint swelling, calf tenderness Back exam: Present: normal inspection. Absent: tenderness, vertebral tenderness Neurological exam: Present: alert, oriented X3, CN II-XII intact Psychiatric exam: Present: normal affect, normal mood Skin exam: Present: warm, dry, intact, normal color. Absent: rash Course Vital Signs 01/23/25 01/23/25 18:58 21:43 Temperature 97.9 F 97.9 F Pulse Rate 56 L 58 L Respiratory 20 16 Rate Blood Pressure 103/67 149/78 O2 Sat by Pulse 99 97 Oximetry Procedures - Orthopedic Splinting/Casting Injury #1 Side: left Upper Extremity Injury Location: wrist Upper Extremity Immobilizer: sling/shoulder immobilizer, volar splint (Plus short arm radial gutter) Medical Decision Making - Medical Decision Making Was pt. sent in by a medical professional or institution (, PA, PAYROLL SUPERVISOR, urgent care, hospital, or care home...) When possible be specific @ -No Did you speak to anyone other than the patient for history (EMS, parent, family, police, friend...)? What history was obtained from this source @ -No Did you review nursing and triage notes (agree or disagree)? Why? @ -I reviewed and agree with nursing and triage notes Were old charts reviewed (outside hosp., previous admission, EMS record, old EKG, old radiological studies, urgent care reports/EKG's, care home records)? Report findings @ -No old charts were reviewed Differential Diagnosis (chest pain, altered mental status, abdominal pain women, abdominal pain men, vaginal bleeding, weakness, fever, dyspnea, syncope, headache, dizziness, GI bleed, back pain, seizure, CVA, palpatations, mental health, musculoskeletal)? @ -Differential Musculoskeletal Muscular strain, contusion, ligament sprain, fracture, arthritis, septic arthritis, bursitis, cellulitis, muscle spasm, nerve compression, DVT, arterial occlusion, herpes zoster, electrolyte abnormality, tumor.... This is not meant to be in all inclusive list EKG interpreted by me (3pts min.). @ -Not done X-rays interpreted by me (1pt min.). @ - Left wrist x-ray shows acute displaced comminuted fracture of the distal radial metaphysis with likely intra-articular extension. Distal ulna appears grossly intact according to radiologist. CT interpreted by me (1pt min.). @ -None done U/S interpreted by me (1pt. min.). @ -None done What testing was considered but not performed or refused? (CT, X-rays, U/S, labs)? Why? @ -None What meds were considered but not given or refused? Why? @ -None Did you discuss the management of the patient with other professionals (professionals i.e. , PA, PAYROLL SUPERVISOR, lab, RT, psych nurse, transition social worker, reverberatory furnace supervisor, teacher, press officer, immigration case worker)? Give summary @ -No Was smoking cessation discussed for >3mins.? @ -No Was critical care preformed (if so, how long)? @ -No Were there social determinants of health that impacted care today? How? (Homelessness, low income, unemployed, alcoholism, drug addiction, transportation, low edu. Level, literacy, decrease access to med. care, longterm, rehab)? @ -No Was there de-escalation of care discussed even if they declined (Discuss DNR or withdrawal of care, Hospice)? DNR status @ -No What co-morbidities impacted this encounter? (DM, HTN, Smoking, COPD, CAD, Cancer, CVA, ARF, Chemo, Hep., AIDS, mental health diagnosis, sleep apnea, morbid obesity)? @ -None Was patient admitted / discharged? Hospital course, mention meds given and route, prescriptions, significant lab abnormalities, going to OR and other pertinent info. @ -Patient provided IM Dilaudid and Toradol for pain. Left wrist x-ray shows acute displaced comminuted fracture of the distal radial metaphysis with likely intra-articular extension. Distal ulna appears grossly intact according to radiologist. Patient initially placed in short arm radial gutter splint with neurovascular function intact following procedure. Discussed patient with Dr. Funes who notes possible distal ulnar fracture as well and recommended volar splint as well, which was placed. Repeat radiographs performed patient noting comfort with splinting before being provided sling and tramadol starter pack. Advised follow-up with orthopedics for definitive management of fracture. Discussed patient with Dr. Funes. Undiagnosed new problem with uncertain prognosis? @ -No Drug Therapy requiring intensive monitoring for toxicity (Heparin, Nitro, Insulin, Cardizem)? @ -No Were any procedures done? @ -Short arm radial gutter and volar splint placed without complication. Diagnosis/symptom? @ -Closed, displaced comminuted fracture of distal radial head, possible ulnar fracture Acute, or Chronic, or Acute on Chronic? @ -Acute Uncomplicated (without systemic symptoms) or Complicated (systemic symptoms)? @ -Uncomplicated Side effects of treatment? @ -No Exacerbation, Progression, or Severe Exacerbation? @ -No Poses a threat to life or bodily function? How? (Chest pain, [place], [place], pneumonia, PE, COPD, DKA, ARF, appy, cholecystitis, CVA, Diverticulitis, Homicidal, Suicidal, threat to staff... and all critical care pts) @ -No Disposition Clinical Impression: Fracture of radial head, left, closed, Left ulnar fracture Disposition: HOME SELF-CARE Condition: Good Instructions (If sedation given, give patient instructions): Wrist Fracture in Adults (ED) Additional Instructions: Alternate Tylenol/Motrin every 4 hours for pain. Follow up with orthopedics in the next 24-48 hours. Is patient prescribed a controlled substance at d/c from ED?: No Referrals: Tuan Bermudez MD [Primary Care Provider] - 1-2 days [facility] [Provider Group] - 1-2 days Time of Disposition: 21:14
[2025-01-23] MEDS: KETOROLAC 15 MG/ML 1 ML VIAL IM STA (20:27)
[2025-01-23] MEDS: HYDROmorphone 1 MG/ML 1 ML SYRINGE IM STA (20:28)
--- NOTE | 2025-01-23 21:31 | XR ---
EXAMINATION TYPE: XR wrist complete LT DATE OF EXAM: 01/23/2025 CLINICAL INDICATION: Female, 74 years old with history of post splint, TECHNIQUE: 3Views of the wrist. COMPARISON: Left wrist x-ray earlier today FINDINGS: Overlying splint or cast material is now present which lowers radiographic sensitivity for evaluation of fine anatomic detail. Acute comminuted intra-articular fracture of distal radial meta-e piphysis is redemonstrated. Persistent dorsal angulation of distal fracture fragment. No new acute fr acture clearly seen. [id number] degenerative change at base of first metacarpal is redemonstr ated. Overlying soft tissue is unremarkable. IMPRESSION: As above. [facility], , 01/23/2025 9:28 PM
[2025-01-23] MEDS: traMADol 50 MG STARTER PACK 3 TAB BTL PO STA (21:36)
[2025-01-23 22:51] VITALS: BP 149/78; PULSE 58; RESP 16
== END 2025-01-23 21:43 | disposition home or self-care (01) ==
LOC: EC 18:49
DX: S52.002A Unspecified fracture of upper end of left ulna, initial encounter for closed fracture (principal); S52.122A Displaced fracture of head of left radius, initial encounter for closed fracture; Z87.891 Personal history of nicotine dependence; Z88.5 Allergy status to narcotic agent; W17.89XA Other fall from one level to another, initial encounter
CPT/HCPCS: 73110; 99283; 96372; 29125; J1171; J1885

== ENCOUNTER → 2025-01-27 | Outpatient (CLI) | payer MEDICARE ==
--- NOTE | 2025-01-27 15:17 | CT ---
EXAMINATION TYPE: CT wrist LT wo con CT DLP: 145.9 mGycm, Automated exposure control for dose reduction was used. DATE OF EXAM: 01/27/2025 3:05 PM COMPARISON: Left wrist radiographs 01/23/2025 CLINICAL INDICATION:Female, 74 years old with history of M25.532 LEFT WRIST PAIN S52.572A FX DISTAL R ADIUS; [facility], Left wrist fx. TECHNIQUE: Axial images were obtained of the left wrist without the use of IV contrast. Additional c oronal and sagittal reformatted images and soft tissue and bone window were obtained for review. 3-D reconstruction was created on a separate workstation. FINDINGS: Overlying cast material identified. Diffuse bone demineralization. Demonstration of comminu beatrice mildly displaced fractures involving the distal radial metaphysis and epiphysis with intra-articu lar extension into the radiocarpal joint. No dislocation. No significant angulation or surrounding ca llus formation. Nondisplaced oblique fracture through the distal ulnar metadiaphysis. Calcification i dentified within the carpal joints with subchondral cystic changes. Joint space narrowing with subcho ndral cystic changes involving the first carpometacarpal joint. There is widening of the triscaphe edilberto int measuring approximately 4 mm. Small wrist joint effusion. Mild soft tissue edema of the wrist. IMPRESSION: 1. Minimally displaced comminuted fracture of the distal radius redemonstrated with intra-articular extension to the radiocarpal joint. 2. Nondisplaced fracture of the distal ulnar metadiaphysis. 3. Chondrocalcinosis within the carpal bones with moderate to severe degenerative changes of the tri scaphe joint and base of the first metacarpal. There is widening of the triscaphe joint suggesting un derlying injury. [facility], , 01/27/2025 3:15 PM
== END | disposition home or self-care (01) ==
LOC: RADCTMAIN 14:11
PROVIDERS: ATTEND Orthopaedic Surgery
DX: S52.572A Other intraarticular fracture of lower end of left radius, initial encounter for closed fracture (principal); S52.692A Other fracture of lower end of left ulna, initial encounter for closed fracture; M11.232 Other chondrocalcinosis, left wrist; M19.032 Primary osteoarthritis, left wrist; X58.XXXA Exposure to other specified factors, initial encounter

== ENCOUNTER → 2025-05-12 | Outpatient (CLI) | payer MEDICARE ==
--- NOTE | 2025-05-12 15:24 | MM ---
Reason for Exam: Screening (asymptomatic). Last mammogram was performed 1 year(s) and 6 month(s) ago. Patient History: Menarche at age 9. First Full-Term at age 18. Left ovary removed at age 46. Right ovary removed at age 46. Hysterectomy at age 46. Postmenopausal. Patient has history of breast feeding. Estrogen, from age 48 until age 58. Risk Values: Trinity 5 year model risk: 1.7%. NCI Lifetime model risk: 3.5%. Prior Study Comparison: 04/19/2018 Bilateral Screening Mammogram, [facility]. 07/15/2019 Bilateral Screening Mammogram, [facility]. 07/27/2020 Bilateral Screening Mammogram, [facility]. 08/20/2021 Bilateral Screening Mammogram, [facility]. 10/28/2022 Bilateral MG 3D screening mammo w/cad, [facility]. 11/13/2023 Bilateral MG 3D screening mammo w/cad, [facility]. Tissue Density: There are scattered areas of fibroglandular density. Findings: Analyzed By CAD. Right breast: There is no suspicious group of microcalcifications or new suspicious mass. Benign-appearing calcifications right breast. Left breast: There is no suspicious group of microcalcifications or new suspicious mass. Benign-appearing calcifications left breast. Overall Assessment: Benign, BI-RAD 2 Management: Screening Mammogram of both breasts in [address] [facility] will attempt to contact patient to return for supplemental views and ultrasound if indicated. Patient should continue monthly self-breast exams. A clinical breast exam by your physician is recommended on an annual basis. This exam should not preclude additional follow-up of suspicious palpable abnormalities. Note on Trinity scores and lifetime risk: 1. A Trinity score greater than 3% is considered moderate risk. If this is the case, consider specialist referral to assess eligibility for a risk reducing agent. 2. If overall lifetime risk for the development of breast cancer is 20% or higher, the patient may qualify for future screening with alternating mammogram and breast MRI. [facility], , 05/12/2025 3:21 PM. Electronically signed and approved by: Yobani Benoit DO
--- NOTE | 2025-05-12 15:27 | BD ---
EXAMINATION TYPE: Axial Bone Density DATE OF EXAM: 05/12/2025 CLINICAL HISTORY: 74 years old Female. ICD-10 CODE: Z78.0 asymptomatic menopausal state , Additional History: Height: 63 Weight: 215 FRAX RISK QUESTIONS: Alcohol (3 or more units per day): no Family History (Parent hip fracture): no Glucocorticoids (More than 3mos): no (Ex: prednisone, prednisolone, methylprednisolone, dexamethasone, and hydrocortisone). History of Fracture in Adulthood: yes Secondary Osteoporosis: 1. Type 1 Diabetes: no 2. Hyperthyroidism: no 3. Menopause before 45: no 4. Malnutrition: no 5. Chronic liver disease: no Rheumatoid Arthritis: no Current Tobacco Use: no RISK FACTORS HISTORY OF: History of Wrist Fracture: left When: 2024 Surgery to Spine/Hip(right/left)/Wrist (right/left): right hip replaced When:2022 EXAM MEASUREMENTS: Bone mineral densitometry was performed using the [employer]. Bone mineral density as measured about the Lumbar spine is: ----- L1-L4(G/cm2): 1.023 T Score Values are as follows: ----- L1: -2.0 ----- L2: -1.8 ----- L3: -0.7 ----- L4: -0.8 ----- L1-L4: -1.3 Z Score Values are as follows: ----- L1: -1.3 ----- L2: -1.1 ----- L3: 0.0 ----- L4: -0.1 ----- L1-L4: -0.6 Bone mineral density has: decreased -1.7 % since study of: 10.28.2022 Bone mineral density about the L hip (g/cm2): 0.685 T Score values are as follows: -----L Neck: -2.4 -----L Total: -2.6 Z Score values are as follows: -----L Neck: -1.1 -----L Total: -1.5 Bone mineral density has: decreased -0.6 % since study of: 10.28.2022 FRAX%s: The graph provided illustrates a 22.6% chance for a major osteoporotic fx and a 6.4% chance f or the hips probability for fx in 10 years time. IMPRESSION: Osteoporosis (T Score less than -2.5). There is increased fracture risk and therapy is usually indicated based on age. Re-Screen 1-2 years. NOTE: T-SCORE=SD OF THE YOUNG ADULT MEAN. [facility], , 05/12/2025 3:25 PM
== END | disposition home or self-care (01) ==
LOC: RADBDWWP 13:40
PROVIDERS: ATTEND Family Medicine
DX: Z12.31 Encounter for screening mammogram for malignant neoplasm of breast (principal); R92.323 Mammographic fibroglandular density, bilateral breasts; R92.1 Mammographic calcification found on diagnostic imaging of breast; M81.0 Age-related osteoporosis without current pathological fracture; Z78.0 Asymptomatic menopausal state
CPT/HCPCS: 77063; 77067; 77080